=== PATIENT | male | born 1940 | race Caucasian/White ===

== ENCOUNTER 2022-07-13 12:13 | Outpatient (CLI) | payer MEDICARE, SELFPAY ==
[2022-07-13 12:57] LABS: Basophils % 0.8 %; Eosinophils # 0.1 10^3/uL (0.0-0.8); Eosinophils % 2.9 %; Hematocrit 30.6 % (42.0-52.0); Lymphocytes # 0.5 10^3/uL (0.8-4.8); Lymphocytes % 20.2 %; Mean Corpuscular HGB Conc 32.7 g/dL (30.0-36.0); Mean Corpuscular Hemoglobin 35.3 pg (28.0-34.0); Mean Corpuscular Volume 108.1 fl (80-94); Mean Platelet Volume 12.1 fL (7.4-10.4); Monocytes # 0.3 10^3/uL (0.2-0.9); Neutrophils # 1.53 10^3/uL (1.8-7.7); Neutrophils % 63.3 %; Nucleated Red Blood Cells % 0 %; Platelet Count 64 10^3/cmm (130-400); Red Blood Count 2.83 10^6/uL (4.1-5.3); Red Cell Distribution Width 13.9 % (12.1-15.1); White Blood Count 2.4 10^3/uL (4.0-10.0)
[2022-07-13 13:07] LABS: Alanine Aminotransferase 18 U/L (0-41); Albumin Level 3.5 g/dL (3.5-5.2); Alkaline Phosphatase 88 U/L (40-130); Anion Gap 13.5 (5-19); Aspartate Amino Transferase 21 U/L (0-40); Blood Urea Nitrogen 16 mg/dL (8-23); Calcium 9.1 mg/dL (8.5-10.5); Carbon Dioxide 25 mmol/L (22-29); Chloride 103 mmol/L (98-107); Chol HDL Ratio 2.24 mg/dL (1.0-5.00); Cholesterol 112 mg/dL (0-200); Glucose 186 mg/dL (65-115); HDL Cholesterol 50 mg/dL (60-100); LDL Cholesterol Calculated 47 mg/dL (50-129); LDL HDL Ratio 0.94 RATIO (0.00-3.22); Osmolality Calculated 290 mOsm/kg (285-295); Potassium 4.5 mmol/L (3.5-5.1); Sodium 137 mmol/L (136-145); Thyroid Stimulating Hormone 2.05 uIU/mL (0.27-4.20); Total Protein 6.5 g/dL (6.6-8.7); Triglycerides 77 mg/dL (0-150)
[2022-07-13 13:16] LABS: Estmated Average Glucose 148; Hemoglobin A1C 6.8 % (4.0-6.0)
== END 2022-07-13 12:14 | disposition home or self-care (01) ==
PROVIDERS: PCP Family Medicine; Visit Provider Family Medicine
DX: E03.9 Hypothyroidism, unspecified (principal); Z13.228 Encounter for screening for other metabolic disorders; R73.09 Other abnormal glucose
CPT/HCPCS: 80053; 80061; 83036; 84443; 85025

== ENCOUNTER 2022-09-07 09:03 | Outpatient (CLI) | payer MEDICARE, SELFPAY ==
[2022-09-07 09:22] LABS: Basophils # 0.1 10^3/uL (0.0-0.1); Eosinophils # 0.2 10^3/uL (0.0-0.8); Eosinophils % 4.4 %; Hemoglobin 10.7 g/dL (11.7-16.6); Lymphocytes # 0.9 10^3/uL (0.8-4.8); Mean Corpuscular HGB Conc 33.4 g/dL (30.0-36.0); Mean Corpuscular Hemoglobin 35.4 pg (28.0-34.0); Monocytes # 0.5 10^3/uL (0.2-0.9); Neutrophils # 3.33 10^3/uL (1.8-7.7); Neutrophils % 66.6 %; Nucleated Red Blood Cells % 0 %; Platelet Count 86 10^3/cmm (130-400); Red Blood Count 3.02 10^6/uL (4.1-5.3); Red Cell Distribution Width 14.6 % (12.1-15.1); Reticulocyte % 1.7 % (0.5-2.0)
[2022-09-07 09:48] LABS: Estmated Average Glucose 94; Hemoglobin A1C 4.9 % (4.0-6.0)
[2022-09-07 09:54] LABS: Alanine Aminotransferase 20 U/L (0-41); Albumin Level 3.9 g/dL (3.5-5.2); Alkaline Phosphatase 82 U/L (40-130); Anion Gap 16.1 (5-19); Aspartate Amino Transferase 23 U/L (0-40); Blood Urea Nitrogen 16 mg/dL (8-23); Calcium 9.4 mg/dL (8.5-10.5); Carbon Dioxide 25 mmol/L (22-29); Chloride 102 mmol/L (98-107); Globulin 2.8 g/dL (1.3-4.6); Glucose 93 mg/dL (65-115); Osmolality Calculated 289 mOsm/kg (285-295); Potassium 4.1 mmol/L (3.5-5.1); Sodium 139 mmol/L (136-145); Thyroid Stimulating Hormone 3.29 uIU/mL (0.27-4.20); Total Bilirubin 1.4 mg/dL (0.15-1.2); Total Protein 6.7 g/dL (6.6-8.7)
[2022-09-07 10:01] LABS: LAB Peripheral Smear Sent for Review
[2022-09-07 11:12] LABS: Folate Level 15.9 ng/mL (4.5-32.2)
[2022-09-07 11:25] LABS: Vitamin B12 > 2000 pg/mL (232-1245)
== END 2022-09-07 09:04 | disposition home or self-care (01) ==
PROVIDERS: PCP Family Medicine; Visit Provider Family Medicine
DX: R79.9 Abnormal finding of blood chemistry, unspecified (principal); I10 Essential (primary) hypertension; Z76.89 Persons encountering health services in other specified circumstances; E11.9 Type 2 diabetes mellitus without complications; D69.6 Thrombocytopenia, unspecified; D72.819 Decreased white blood cell count, unspecified; D53.9 Nutritional anemia, unspecified
CPT/HCPCS: 80053; 80503; 82607; 82746; 83036; 84439; 84443; 85025; 85045

== ENCOUNTER 2022-11-05 19:53 | Emergency (ER) | payer MEDICARE, SELFPAY ==
[2022-11-05 19:56] VITALS: BP 119/69; PULSE 99; RESP 16; TEMP 36.6; O2SAT 97; BMI 21.5
--- NOTE | 2022-11-05 20:10 | CTR_ITS ---
PROCEDURE INFORMATION: Exam: CT Head Without Contrast Exam date and time: 11/05/2022 8:18 PM Age: 82 years old Clinical indication: Injury or trauma; Fall; Blunt trauma (contusions or hematomas); Consciousness not specified; Additional info: Fall, posterior head pain, HX of old brain bleed per PT TECHNIQUE: Imaging protocol: Computed tomography of the head without contrast. Radiation optimization: All CT scans at this facility use at least one of these dose optimization techniques: automated exposure control; mA and/or kV adjustment per patient size (includes targeted exams where dose is matched to clinical indication); or iterative reconstruction. REPORTING DATA: Count of CT and Cardiac NM exams in prior 12 months: This patient has received 0 known CTs and 0 known cardiac nuclear medicine studies in the 12 months prior to the current study. COMPARISON: No relevant prior studies available. RADIATION DOSE METRICS: Total DLP (mGy-cm): 194.9 FINDINGS: Brain: There is a right cerebral convexity extra-axial subdural collection measuring 5 mm maximum thickness on series 6, image 30 slightly hyperdense to CSF. There is midline shift to the left measuring 2 mm present with minimal mass effect. No acute infarct. Mild involutional changes of the brain are present. Cerebral ventricles: No ventriculomegaly. Paranasal sinuses: Visualized sinuses are unremarkable. No fluid levels. Mastoid air cells: Visualized mastoid air cells are well aerated. Bones/joints: Unremarkable. No acute fracture. Soft tissues: Unremarkable. CT/CT head wo con* [id number] IMPRESSION: Right cerebral convexity extra-axial collection slightly hyperdense to CSF is likely a subacute subdural hematoma. This results in 2 mm of leftward midline shift.
--- NOTE | 2022-11-05 20:10 | CTR_ITS ---
PROCEDURE INFORMATION: Exam: CT Cervical Spine Without Contrast Exam date and time: 11/05/2022 8:18 PM Age: 82 years old Clinical indication: Injury or trauma; Fall; Blunt trauma; Additional info: Fall, neck pain, HX of multiple neck surgeries TECHNIQUE: Imaging protocol: Computed tomography of the cervical spine without contrast. Radiation optimization: All CT scans at this facility use at least one of these dose optimization techniques: automated exposure control; mA and/or kV adjustment per patient size (includes targeted exams where dose is matched to clinical indication); or iterative reconstruction. REPORTING DATA: Count of CT and Cardiac NM exams in prior 12 months: This patient has received 0 known CTs and 0 known cardiac nuclear medicine studies in the 12 months prior to the current study. COMPARISON: No relevant prior studies available. RADIATION DOSE METRICS: Total DLP (mGy-cm): 1170.35 FINDINGS: Bones/joints: The cervical spinal alignment is near anatomic. There are anterior interbody fusion changes present C3 to C6 with laminectomy changes also seen at the same levels. Adjacent segment degenerative disc disease is present without high-grade compromise of the spinal canal. Lungs: Lung apices are normal. Soft tissues: Unremarkable. CT/CT cervical spin wo con* [id number] IMPRESSION: No acute cervical spinal fracture.
--- NOTE | 2022-11-05 20:10 | W.ED.FALL ---
HPI - Fall General: Chief Complaint: Fall Stated Complaint: fall, head injury, neck pain Time Seen by Provider: 11/05/22 20:05 History of Present Illness: Patient presents to the ER with his caregiver. Patient states he fell hit the back of his head. Patient is now having posterior occipital pain and neck pain. Patient denies any loss of consciousness. Patient is not on blood thinners. 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 MD complaint: fall Onset (ago): day(s) (Today) Fall from: standing Place fall occurred: home Loss of consciousness: None Context: tripped/slipped Location of injury: head and neck Associated symptoms-after fall: Reports no associated symptoms, headache(s) and neck pain; Denies abdominal pain or chest pain Review of Systems General: Reports: 10 or more systems reviewed and unremarkable except in HPI and below Const: Denies: fever(s) or chills Eyes: Denies: change in vision or photophobia ENMT: Denies: throat pain or odynophagia Card: Denies: chest pain, palpitations, irregular heart rhythm or edema Resp: Denies: dyspnea, productive cough or non-productive cough GI: Denies: abdominal pain, nausea or vomiting : Denies: flank pain or dysuria Musc: Reports: neck pain; Denies: back pain, extremity pain or extremity swelling Skin/Breast: Denies: rash or pruritus Neuro: Reports: headache(s); Denies: numbness in extremities or weakness in extremities Physical Exam Const: COMMON NORMALS: no acute distress, average body habitus, patient oriented x3, no limitations, healthy appearing, alert and well nourished HENMT: COMMON NORMALS: normocephalic, atraumatic, hearing grossly normal bilaterally, external ears normal, Normal external nose present and moist oral mucous membranes HEAD & SCALP: normocephalic and atraumatic NOSE: Normal external nose present EXTERNAL EAR: Yes external ears normal Eye: COMMON NORMALS: Equal, round and reactive pupils present, EOMs intact bilaterally, conjunctivae normal and no scleral icterus CONJUNCTIVA: Yes conjunctivae normal PUPIL: Yes Equal, round and reactive pupils present Neck/C-Spine: COMMON NORMALS: no JVD OTHER: Minimal pain with palpation over posterior C-spine, worse when palpating bilateral paraspinal muscles. Chest: COMMONS NORMALS: normal inspection of the chest and normal palpation of entire chest wall Resp: COMMON NORMALS: normal respiratory effort, No retractions, No use of accessory muscles and clear to auscultation bilaterally AUSCULTATION: clear to auscultation bilaterally Cardio: COMMON NORMALS: no JVD, regular rate, regular rhythm, S1 normal heart sound present and S2 normal heart sound present RATE: regular rate RHYTHM: regular rhythm HEART SOUNDS: S1 normal heart sound present and S2 normal heart sound present GI: COMMON NORMALS: Normal to inspection, nondistended, normoactive bowel sounds present, Soft to palpation, non-tender and No hepatosplenomegaly present PALPATION: Yes Soft to palpation and Yes No hepatosplenomegaly present : COMMON NORMALS: Yes no CVA tenderness BLADDER/KIDNEY EXAM: Yes no CVA tenderness Back/Pelvis: COMMON NORMALS: no CVA tenderness Neuro: COMMON NORMALS: patient oriented x3, CN's II-XII intact bilaterally, moves all extremities, no focal motor deficits and no sensory deficits noted SENSORIUM/ORIENTATION: Yes alert Course Vital Signs: Vital signs: Vital Signs Temperature 97.8 F 11/05/22 19:56 Pulse Rate 103 H 11/05/22 20:11 Respiratory Rate 16 11/05/22 20:11 Blood Pressure 108/63 11/05/22 20:11 Pulse Oximetry 98 11/05/22 20:11 Oxygen Delivery Me thod Room Air 11/05/22 20:11 MDM - Fall Medical Decision Making Patient is 82-year-old male who fell today and hit the back of his head. He presents to the ER with head pain and neck pain. Patient denies any loss of consciousness. Physical exam was performed imaging was obtained radiologist called and said patient has a 5 mm subacute subdural hematoma in the right cerebral region with a 2 mm leftward shift. This was discussed with the patient and his family member. Patient will be transferred to [facility] Dr. Ambrose was notified and accepted in transfer. Differential Diagnosis Likely concussion without loss of consciousness; Unlikely syncope, dislocation of shoulder region, fracture of wrist, compression fracture or concussion with loss of consciousness Medical Records I reviewed the patient's medical records. Lab Data I reviewed the patient's lab results. Radiology Impressions Cervical Spine CT 11/05/22 20:10 IMPRESSION: No acute cervical spinal fracture. Head CT 11/05/22 20:10 IMPRESSION: Right cerebral convexity extra-axial collection slightly hyperdense to CSF is likely a subacute subdural hematoma. This results in 2 mm of leftward midline shift. ADDENDUM: 11/05/222056 THIS REPORT CONTAINS FINDINGS THAT MAY BE CRITICAL TO PATIENT CARE. The findings were verbally communicated via telephone conference with Lewis Baum at 8:55 PM CDT on 11/05/2022. The findings were acknowledged and understood. Discharge Plan Discharge Patient Disposition: Xfer Short-Term Hosp Clinical Impression: Acute subdural hematoma, Fall Condition: Stable Prescriptions: No Action (DME) lancets [TRUEplus Lancets] 28 gauge misc See Rx Instructions .ROUTE .MEDSUPPLY Qty: 100 Rx Instructions: As directed cholecalciferol (vitamin D3) [Vitamin D3] 10 mcg (400 unit) tablet PO glimepiride 4 mg tablet PO citalopram 20 mg tablet PO levetiracetam 500 mg tablet PO atorvastatin 10 mg tablet PO metformin 500 mg tablet PO cholecalciferol (vitamin D3) 125 mcg (5,000 unit) tablet 5,000 unit PO .weekly Referrals: Cale Mohr DO [Primary Care Provider] - Coding Level of Care Code ED Plumbing Assembler for Mayra Pedroza
[2022-11-05 20:11] VITALS: BP 108/63; PULSE 103; RESP 16; O2SAT 98
--- NOTE | 2022-11-05 21:26 | PC.NURSE ---
Report called to [facility] for report @ [phone].
[2022-11-05 21:30] LABS: Alanine Aminotransferase 21 U/L (0-41); Albumin Level 4.2 g/dL (3.5-5.2); Alkaline Phosphatase 91 U/L (40-130); Anion Gap 18.6 (5-19); Aspartate Amino Transferase 24 U/L (0-40); Blood Urea Nitrogen 22 mg/dL (8-23); Calcium 9.8 mg/dL (8.5-10.5); Carbon Dioxide 24 mmol/L (22-29); Chloride 104 mmol/L (98-107); Globulin 3.1 g/dL (1.3-4.6); Glucose 186 mg/dL (65-115); Osmolality Calculated 302 mOsm/kg (285-295); Potassium 4.6 mmol/L (3.5-5.1); Sodium 142 mmol/L (136-145); Total Protein 7.3 g/dL (6.6-8.7)
[2022-11-05 21:53] LABS: Hematocrit 32.4 % (42.0-52.0); Hemoglobin 10.7 g/dL (11.7-16.6); Mean Corpuscular Volume 105.9 fl (80-94); Mean Platelet Volume 11.8 fL (7.4-10.4); Platelet Count 71 10^3/cmm (130-400); Red Blood Count 3.06 10^6/uL (4.1-5.3); Red Cell Distribution Width 14.2 % (12.1-15.1); White Blood Count 4.7 10^3/uL (4.0-10.0)
[2022-11-05 21:54] LABS: Basophils % 0.4 %; Eosinophils % 2.1 %; Lymphocytes % 14.9 %; Monocytes % 7.9 %; Neutrophils % 73.8 %
[2022-11-05 22:00] VITALS: BP 108/59; PULSE 84; RESP 29; O2SAT 99
[2022-11-05 22:06] VITALS: BP 104/62; PULSE 74; RESP 29; O2SAT 99
[2022-11-05 22:53] LABS: Eosinophils # 0.1 10^3/uL (0.0-0.8); Lymphocytes # 0.7 10^3/uL (0.8-4.8); Monocytes # 0.4 10^3/uL (0.2-0.9); Neutrophils # 3.46 10^3/uL (1.8-7.7); Nucleated Red Blood Cells % 0 %
== END 2022-11-05 22:08 | disposition short-term general hospital (02) ==
PROVIDERS: Emergency Provider Emergency Medicine; PCP Family Medicine
DX: S06.5X0A Traumatic subdural hemorrhage without loss of consciousness, initial encounter (principal); W19.XXXA Unspecified fall, initial encounter
CPT/HCPCS: 70450; 72125; 80053; 85025; 85610; 99285

== ENCOUNTER → 2022-11-16 09:11 | Outpatient (BNVA) | payer MEDICARE, SELFPAY | PROVIDERS: PCP Family Medicine; Visit Provider Podiatrist Foot & Ankle Surgery | DX: E11.42 Type 2 diabetes mellitus with diabetic polyneuropathy (principal); B35.1 Tinea unguium; I73.9 Peripheral vascular disease, unspecified; M20.40 Other hammer toe(s) (acquired), unspecified foot; Z79.84 Long term (current) use of oral hypoglycemic drugs | CPT/HCPCS: 11721; 99203 ==

== ENCOUNTER 2022-12-27 09:26 | Outpatient (CLI) | payer MEDICARE, SELFPAY ==
[2022-12-27 09:43] LABS: Basophils % 1.1 %; Eosinophils # 0.1 10^3/uL (0.0-0.8); Eosinophils % 2.8 %; Hematocrit 28.1 % (42.0-52.0); Hemoglobin 9.1 g/dL (11.7-16.6); Lymphocytes # 0.4 10^3/uL (0.8-4.8); Lymphocytes % 15.3 %; Mean Corpuscular HGB Conc 32.4 g/dL (30.0-36.0); Mean Corpuscular Hemoglobin 35.4 pg (28.0-34.0); Mean Corpuscular Volume 109.3 fl (80-94); Mean Platelet Volume 12.9 fL (7.4-10.4); Monocytes # 0.3 10^3/uL (0.2-0.9); Monocytes % 9.3 %; Neutrophils # 1.99 10^3/uL (1.8-7.7); Neutrophils % 70.8 %; Nucleated Red Blood Cells % 0 %; Platelet Count 64 10^3/cmm (130-400); Red Blood Count 2.57 10^6/uL (4.1-5.3); Red Cell Distribution Width 14.4 % (12.1-15.1); White Blood Count 2.8 10^3/uL (4.0-10.0)
[2022-12-27 10:28] LABS: Estmated Average Glucose 88; Hemoglobin A1C 4.7 % (4.0-6.0)
[2022-12-27 10:37] LABS: 25 Hydroxy Vitamin D 88 ng/mL (30-100); Alanine Aminotransferase 14 U/L (0-41); Albumin Level 3.9 g/dL (3.5-5.2); Alkaline Phosphatase 66 U/L (40-130); Anion Gap 13.4 (5-19); Aspartate Amino Transferase 20 U/L (0-40); Blood Urea Nitrogen 16 mg/dL (8-23); Calcium 8.7 mg/dL (8.5-10.5); Carbon Dioxide 25 mmol/L (22-29); Chloride 108 mmol/L (98-107); Globulin 2.2 g/dL (1.3-4.6); Glucose 60 mg/dL (65-115); Magnesium 1.8 mg/dL (1.7-2.3); Osmolality Calculated 293 mOsm/kg (285-295); Potassium 4.4 mmol/L (3.5-5.1); Sodium 142 mmol/L (136-145); Thyroid Stimulating Hormone 3.07 uIU/mL (0.27-4.20); Total Bilirubin 1.1 mg/dL (0.15-1.2); Total Protein 6.1 g/dL (6.6-8.7); Vitamin B12 1314 pg/mL (232-1245)
[2022-12-27 10:40] LABS: Folate Level 13.9 ng/mL (4.5-32.2)
== END 2022-12-27 09:27 | disposition home or self-care (01) ==
LOC: LAB 09:27
PROVIDERS: PCP Family Medicine; Visit Provider Family Medicine
DX: E16.2 Hypoglycemia, unspecified (principal); E55.9 Vitamin D deficiency, unspecified; R94.6 Abnormal results of thyroid function studies; Z79.899 Other long term (current) drug therapy
CPT/HCPCS: 80053; 82306; 82607; 82746; 83036; 83735; 84443; 85025

== ENCOUNTER 2023-01-18 08:11 | Outpatient (CLI) | payer MEDICARE, SELFPAY ==
--- NOTE | 2023-01-18 08:24 | US_ITS ---
WS: [id number] Gallbladder and right upper quadrant ultrasound, 01/18/2023 Clinical Data: CIRRHOSIS, NON ALCOHOLIC Comparison: None. Findings: The gallbladder shows posterior shadowing which suggests gallstones. The wall is not well-defined but no obvious pericholecystic fluid is seen The common bile duct is 0.4 cm and there are no intrahepati c ductal abnormalities. Liver shows no cysts or dilated intrahepatic ducts. The liver shows dense echotexture with surface ir regularity which can be seen with cirrhosis. There is a nodule adjacent to the left lobe of the liver measuring 2.99 x 3.58 cm x 5.06 cm which has the echotexture of the adjacent liver. This may represe nt an accessory lobe of the liver. The pancreas is not obscured by overlying bowel gas and no cyst, pseudocyst, or evidence of pancreati tis is noted. Right kidney measures 9.3 cm and no cyst, masses or hydronephrosis can be seen. The aorta and inferior vena cava show no vascular abnormalities. US/US abdomen limited [id number] Impression: 1. Minimal liver surface irregularity and dense echotexture which can be seen w ith cirrhosis. 2. Probable accessory lobe of the liver. 3. Possible cholecystitis. 4. Recommend CT scan of the abdomen and pelvis with emphasis on the liver and u pper abdomen.
== END 2023-01-18 08:12 | disposition home or self-care (01) ==
PROVIDERS: PCP Family Medicine; Visit Provider Internal Medicine Gastroenterology
DX: E11.42 Type 2 diabetes mellitus with diabetic polyneuropathy (principal); B35.1 Tinea unguium; M20.40 Other hammer toe(s) (acquired), unspecified foot; I73.9 Peripheral vascular disease, unspecified; Z79.84 Long term (current) use of oral hypoglycemic drugs
CPT/HCPCS: 11721; 76705

== ENCOUNTER 2023-01-31 09:49 | Outpatient (CLI) | payer MEDICARE, SELFPAY ==
[2023-01-31 10:19] LABS: Ammonia 23 umol/L (16-60)
== END 2023-01-31 09:50 | disposition home or self-care (01) ==
PROVIDERS: PCP Family Medicine; Visit Provider Family Medicine
DX: E72.20 Disorder of urea cycle metabolism, unspecified (principal)
CPT/HCPCS: 82140

== ENCOUNTER 2023-02-02 13:05 | Emergency (ER) | payer MEDICARE, SELFPAY ==
[2023-02-02 13:07] VITALS: BP 114/71; PULSE 76; RESP 18; TEMP 36.5; O2SAT 97; BMI 24.3
--- NOTE | 2023-02-02 13:07 | W.ED.FALL ---
HPI - Fall General: Chief Complaint: Fall Stated Complaint: fall Time Seen by Provider: 02/02/23 13:07 History of Present Illness: Mr. Hilario is an 82-year-old gentleman presented to the emergency department from shelter for fall. He reports that he thinks that he just tripped but is somewhat unsure. He has been feeling well the past few days and denies other injuries other than his head. Mild intensity head pain. Course has persisted. No other specific changes in health, exacerbating, or alleviating factors identified. Fall from: standing Loss of consciousness: Unsure Review of Systems General: Reports: 10 or more systems reviewed and unremarkable except in HPI and below PFSH ED PFSH: Medical History (Updated 02/10/23 @ 00:01 by RICARDO Ruth) Dementia with behavioral disturbance Diabetes type 2, uncontrolled Subdural hematoma Physical Exam Const: COMMON NORMALS: alert GENERAL APPEARANCE: cooperative and well developed HENMT: COMMON NORMALS: normocephalic HEAD & SCALP: normocephalic THROAT: posterior oropharynx normal OTHER: Left superior scalp abrasion, no laceration. No luther signs or raccoon eyes. No hemotympanum. No otorrhea or rhinorrhea. Jaw alignment normal. Dentition baseline. No obvious bony step-offs. No septal hematoma. No evidence of ocular entrapment. Eye: COMMON NORMALS: conjunctivae normal CONJUNCTIVA: Yes conjunctivae normal SCLERA: sclerae normal Neck/C-Spine: COMMON NORMALS: supple GENERAL: Yes trachea midline Resp: COMMON NORMALS: clear to auscultation bilaterally EFFORT & INSPECTION: Yes able to speak in complete sentences AUSCULTATION: clear to auscultation bilaterally Cardio: COMMON NORMALS: regular rate and regular rhythm RATE: regular rate RHYTHM: regular rhythm GI: COMMON NORMALS: Soft to palpation PALPATION: Yes Soft to palpation and No Tenderness to palpation present (GI) Extremity: GENERAL: Yes normal exam except as noted and No edema Neuro: COMMON NORMALS: moves all extremities SENSORIUM/ORIENTATION: Yes alert and No Orientation impaired Psych: COMMON NORMALS: mental status grossly normal and Normal thought process present THOUGHT PROCESS: Normal thought process present Course Vital Signs: Vital signs: Vital Signs Temperature 97.9 F 02/02/23 15:29 Pulse Rate 74 02/02/23 15:29 Respiratory Rate 18 02/02/23 15:29 Blood Pressure 100/62 02/02/23 15:29 Pulse Oximetry 99 02/02/23 15:29 Oxygen Delivery Me thod Room Air 02/02/23 13:41 MDM - Fall Medical Decision Making 82-year-old gentleman presenting with fall. Head to toe exam performed. Nontoxic. EKG demonstrates sinus rhythm with first-degree AV block, nonspecific ST segment abnormalities, no STEMI. Normal glucose. No acute traumatic injuries identified on head or C-spine CT. Improved findings compared to prior. The results of ED evaluation were discussed with the patient including prescriptions and/or symptomatic cares (if applicable) including appropriate and responsible use, followup plan, and return precautions. The patient verbalized understanding and felt safe for discharge. Medical Records I reviewed the patient's medical records. Lab Data I reviewed the patient's lab results. Radiology Impressions Cervical Spine CT 02/02/23 13:21 IMPRESSION: 1. Postsurgical changes along with spondylotic degenerative changes as noted above. 2. No acute cervical spine fracture or significant change with prior exam. Head CT 02/02/23 13:21 IMPRESSION: 1. Atrophic or involutional change for age along with chronic small-vessel disease change within the periventricular deep white matter. 2. Interval improvement in mild right subdural fluid collection from prior exam November 05, 2022. 3. No acute intracranial hemorrhage or hematoma. Laboratory Results POC Glucose 105 mg/dL (70-110) 02/02/23 13:55 Discharge Plan Discharge Patient Disposition: Home Clinical Impression: Fall, Abrasion of scalp Condition: Stable Prescriptions: No Action (DME) lancets [TRUEplus Lancets] 28 gauge misc See Rx Instructions .ROUTE .MEDSUPPLY Qty: 100 Rx Instructions: As directed cholecalciferol (vitamin D3) [Vitamin D3] 10 mcg (400 unit) tablet 10 mcg PO DAILY glimepiride 4 mg tablet 4 mg PO DAILY citalopram 20 mg tablet 20 mg PO DAILY levetiracetam 500 mg tablet 500 mg PO BID atorvastatin 10 mg tablet 10 mg PO DAILY metformin 500 mg tablet 500 mg PO BID cholecalciferol (vitamin D3) 125 mcg (5,000 unit) tablet 5,000 unit PO DAILY pantoprazole 40 mg tablet,delayed release (DR/EC) 40 mg PO DAILY (DME) OneTouch Ultra Test Strip See Rx Instructions .ROUTE .MEDSUPPLY Qty: 10 Rx Instructions: As directed Discharge Orders: Discharge ED (Routine); Ordered 02/02/23 Ordered By: Dio Carty Referrals: Cale Mohr, [Primary Care Provider] - Discharge Diet: Usual diet Discharge Activity: Increase activity as tolerated Patient Instructions: Fall Prevention for Older Adults (ED), Head Injury (ED), Abrasion (ED) Activity Restrictions/Additional Instructions: Thank you for visiting the emergency department. You were seen and evaluated for fall with head injury. No acute internal injury was identified. Please keep the abrasion clean and dry and watch for signs of infection. You may use topical medications such as Neosporin or bacitracin. You may use glxt-eyk-vcfcmza medications such as acetaminophen and ibuprofen for pain however please do not exceed the daily recommended dosage as listed on the packaging and please keep in mind that many namebrand medications contain the same active ingredients. Please avoid these medications if previously instructed to do so by another physician due to other underlying medical condition. Follow-up with a primary care provider. Return for anything that you are concerned about and feel needs emergency department evaluation Coding Level of Care Code ED Curriculum And Instruction Director for Mayra Pedroza
--- NOTE | 2023-02-02 13:21 | CTR_ITS ---
PROCEDURE INFORMATION: Exam: CT Cervical Spine Without Contrast Exam date and time: 02/02/2023 1:34 PM Age: 82 years old Clinical indication: Injury or trauma; Fall; Concussion/head injury; Injury date: 02/02/2023; Prior surgery; Surgery date: 6+ months; Surgery type: Cspine; Patient HX: Denies loc TECHNIQUE: Imaging protocol: Computed tomography of the cervical spine without contrast. Radiation optimization: All CT scans at this facility use at least one of these dose optimization techniques: automated exposure control; mA and/or kV adjustment per patient size (includes targeted exams where dose is matched to clinical indication); or iterative reconstruction. REPORTING DATA: Count of CT and Cardiac NM exams in prior 12 months: This patient has received 2 known CTs and 0 known cardiac nuclear medicine studies in the 12 months prior to the current study. COMPARISON: CT cervical spin wo con* [id number] 11/05/2022 8:18 PM RADIATION DOSE METRICS: Total DLP (mGy-cm): 159.3 FINDINGS: Bones/joints: Postsurgical changes noted C3 through C6 level with anterior fusion hardware and interbody fusion along with laminectomy changes. Cervical vertebral body heights appear maintained. Alignment appears unremarkable. Spondylotic or degenerative changes noted above and below the level of fusion. No fracture or acute osseous abnormality. No significant high-grade or severe spinal stenosis. No significant change with previous exam. Lungs: Lung apices are not visualized. Soft tissues: No significant focal soft tissue abnormality. CT/CT cervical spin wo con* [id number] IMPRESSION: 1. Postsurgical changes along with spondylotic degenerative changes as noted above. 2. No acute cervical spine fracture or significant change with prior exam.
--- NOTE | 2023-02-02 13:21 | CTR_ITS ---
PROCEDURE INFORMATION: Exam: CT Head Without Contrast Exam date and time: 02/02/2023 1:34 PM Age: 82 years old Clinical indication: Injury or trauma; Fall; Blunt trauma (contusions or hematomas); Without loss of consciousness; Injury date: 02/02/2023 TECHNIQUE: Imaging protocol: Computed tomography of the head without contrast. Radiation optimization: All CT scans at this facility use at least one of these dose optimization techniques: automated exposure control; mA and/or kV adjustment per patient size (includes targeted exams where dose is matched to clinical indication); or iterative reconstruction. REPORTING DATA: Count of CT and Cardiac NM exams in prior 12 months: This patient has received 2 known CTs and 0 known cardiac nuclear medicine studies in the 12 months prior to the current study. COMPARISON: CT head wo con* [id number] 11/05/2022 8:18 PM RADIATION DOSE METRICS: Total DLP (mGy-cm): 1128.1 FINDINGS: Brain: Atrophic or involutional change for is seen. Vwgf-[id number]-spkxiqih periventricular hypodensity suggest chronic small-vessel disease change. Findings are chronic with previous exam November 05, 2022. Interval improvement in mild right subdural fluid collection in relation to previous exam. No findings of acute intracranial hemorrhage or hematoma. No mass effect or shift of midline structures. No findings to indicate territorial or large vessel ischemic infarct. Cerebral ventricles: Mild ventricular prominence with atrophic change unchanged with prior exam. Paranasal sinuses: Visualized sinuses are unremarkable. No fluid levels. Mastoid air cells: Visualized mastoid air cells are well aerated. Bones/joints: Bone windows of the skull show no acute findings. Soft tissues: Unremarkable. CT/CT head wo con* [id number] IMPRESSION: 1. Atrophic or involutional change for age along with chronic small-vessel disease change within the periventricular deep white matter. 2. Interval improvement in mild right subdural fluid collection from prior exam November 05, 2022. 3. No acute intracranial hemorrhage or hematoma.
[2023-02-02 13:38] VITALS: BP 118/84; PULSE 78; RESP 16; TEMP 36.3; O2SAT 100
[2023-02-02 13:41] VITALS: BP 124/64; PULSE 69; RESP 18; TEMP 36.6; O2SAT 99
--- NOTE | 2023-02-02 13:50 | ECG_ITS ---
[facility] Test Date: 2023-02-02 Pat Name: Ted Hilario Department: Room: Gender: Male Guest Request Runner: : [id number] Requested By: Dio Carty Order Number: [id number] Giuseppe MD: Alex Alvares M.D. Measurements Intervals [place] Rate: 68 P: 61 VT: 272 QRS: -18 QRSD: 98 T: 38 QT: 411 QTc: 438 Interpretive Statements SINUS RHYTHM WITH FIRST DEGREE AV BLOCK No previous ECG available for comparison Electronically Signed On 02-04-2023 8:34:03 CDT by Alex Alvares M.D. [id number]
[2023-02-02 13:58] VITALS: TEMP 36.6
[2023-02-02 14:03] LABS: Glucose Point of Care 105 mg/dL (70-110)
[2023-02-02 15:29] VITALS: BP 100/62; PULSE 74; RESP 18; TEMP 36.6; O2SAT 99
== END 2023-02-02 15:34 | disposition home or self-care (01) ==
PROVIDERS: Emergency Provider Emergency Medicine; PCP Family Medicine
DX: S00.01XA Abrasion of scalp, initial encounter (principal); W19.XXXA Unspecified fall, initial encounter; I44.0 Atrioventricular block, first degree
CPT/HCPCS: 36416; 70450; 72125; 82962; 93005; 99284

== ENCOUNTER 2023-02-14 15:10 | Outpatient (CLI) | payer MEDICARE, SELFPAY ==
--- NOTE | 2023-02-14 15:15 | MR_ITS ---
WS: [id number] MRI BRAIN WITHOUT CONTRAST HISTORY: Worsening demenita, h/o subdural hematoma COMPARISON: CT head noncontrast 02/02/2023 TECHNIQUE: Diffusion imaging, multiplanar T1, T2 and FLAIR imaging obtained. No evidence for acute infarct or hemorrhage. Hollis-white matter differentiation is normal. Moderate sm all vessel ischemic changes surrounding the ventricles. No large territory infarct. Patient has a known small right mixed subdural hematoma. Diameter of the hematoma is 4 mm. No signifi cant mass effect upon the right frontal lobe. The right frontoparietal subdural hematoma does appear to have increased when compared to the most recent CT evaluations. Subdural hematoma extends posterio r along the parietal lobe. No midline shift. Mildly prominent ventricles and extra-axial spaces. No inferior displacement of cerebellar tonsils. The sella turcica and pituitary gland are unremarkabl e. Dural venous sinuses and [place] demonstrate no abnormality on this unenhanced studies. Paranasal sinuses: Clear. Mastoid air cells: Normal. Calvarium and scalp: Intact. IMPRESSION: 1. Diffusion weighted imaging is normal. No acute infarct. 2. Small mixed right frontoparietal subdural hematoma. As compared to the most recent CT examination s of 02/02/2023 and 11/05/2022 the subdural appears very slightly greater in extent. No significant midl ine shift and no mass effect at this time. 3. Mild atrophy and chronic small vessel ischemic disease. Notified Cale Mohr DO at 02/14/2023 4:20 PM. Message left with Judit at the office.
--- NOTE | 2023-02-14 15:17 | MR_ITS ---
WS: [id number] MRI ABDOMEN WITH AND WITHOUT CONTRAST. COMPARISON: Abdomen ultrasound 01/18/2013 Multiplanar, multisequence imaging is performed with and without contrast. MultiHance 14 mL IV. History: History of cirrhosis. There is motion artifact on numerous sequences. Patient is unable to hold his breath for this amount of time to adequately obtain MRI evaluation. Heterogeneous appearance to the liver. On the images obtained no masses or abnormal enhancement ident ified. Several sequences are limited by motion artifact. No mass is identified adjacent to the liver as noted on the prior CT. Mass may have been a distended stomach with food products. Portal vein as v isualized contains no thrombus. Gallbladder is mildly dilated with layering stones and possible sludg e. No adjacent inflammation. No bile duct dilatation. Pancreas is atrophied but otherwise poorly visu alized. Spleen is enlarged measuring 15.3 cm in length. There is a tiny amount of ascites adjacent to the liver. No adrenal mass. The stomach is markedly distended with food products. The visualized GI tract within the upper abdome n also demonstrates constipation through the transverse colon. No obstructive pattern. IMPRESSION: 1. Quality of this examination is degraded by breathing artifact. Patient was unable to remain still for this examination. CT abdomen and pelvis may be a better option as the patient would not be requir ed to remain still for as long. 2. Heterogeneous liver. No mass identified. 3. Possible accessory lobe identified by the recent ultrasound may be a fluid distended stomach. The stomach is markedly distended with food products. Consider gastroparesis. 4. Mildly hydropic gallbladder without adjacent inflammation. Stones and sludge are present. No bile duct dilatation. 5. Mild splenomegaly.
[2023-02-14] MEDS: gadobenate dimeglumine 20 mL vial IV (16:36)
== END 2023-02-14 15:11 | disposition home or self-care (01) ==
LOC: RAD 15:12
PROVIDERS: PCP Family Medicine; Visit Provider Family Medicine
DX: F03.918 Unspecified dementia, unspecified severity, with other behavioral disturbance (principal); R41.82 Altered mental status, unspecified; S06.5XAA Traumatic subdural hemorrhage with loss of consciousness status unknown, initial encounter; X58.XXXA Exposure to other specified factors, initial encounter; R16.1 Splenomegaly, not elsewhere classified
CPT/HCPCS: 70551; 74183; A9577

== ENCOUNTER 2023-03-14 13:29 | Emergency (ER) | payer MEDICARE, SELFPAY ==
[2023-03-14 13:32] VITALS: BP 116/72; PULSE 105; RESP 15; TEMP 37.2; O2SAT 97; BMI 24.3
--- NOTE | 2023-03-14 13:40 | CT_ITS ---
WS: [id number] CT HEAD TECHNIQUE: Noncontrast CT of the head obtained from the skullbase to the vertex. CLINICAL INFORMATION: fall COMPARISON: 02/02/2023 DLP: 1337.[address] scans at [facility] use at least one of these dose optimization techniques: automated e xposure control; mA and/or kV adjustment per patient size (includes targeted exams where dose is matc hed to clinical indication); or iterative reconstruction. FINDINGS:Previously described RIGHT frontal parietal subdural hematoma seen on the recent studies jeri ears stable to slightly improved. No new hemorrhage. Small meningioma overlying the RIGHT frontal lobe better seen on the prior MRI measuring 13 x 7 mm Mild mucosal thickening in the paranasal sinuses. Small retention cyst or polyp RIGHT maxillary sinus . Mastoid air cells are well aerated. Normal posterior nasopharynx. Soft tissue edema overlying the midline parietal calvarium. No visualized fractures. IMPRESSION: 1. Previously described RIGHT frontal parietal subdural hematoma seen on the recent studies appears stable to slightly improved. No new hemorrhage. 2. Small RIGHT frontal extra-axial meningioma better seen on the prior MRI 3. Moderate small vessel changes. Moderate parenchymal volume loss. 4. Intracranial vascular calcification.
--- NOTE | 2023-03-14 13:40 | CT_ITS ---
WS: [id number] CT CERVICAL TRAUMA TECHNIQUE: Noncontrast CT of the cervical spine with coronal and sagittal reformatted images. CLINICAL INFORMATION: fall COMPARISON: CT 02/02/2023 DLP: 1337.[address] scans at [facility] use at least one of these dose optimization techniques: automated e xposure control; mA and/or kV adjustment per patient size (includes targeted exams where dose is matc hed to clinical indication); or iterative reconstruction. FINDINGS: Straightening the normal cervical lordosis. Extensive postoperative changes ACDF C3-C6 with interbody fusion grafts. Decompressive laminectomy defects. Dens is normal in appearance. Normal occ ipital condyles. No acute fractures. Lung apices appear well aerated. Vascular calcification. Hardwar e appears unchanged compared to previous. IMPRESSION: No evidence of acute fracture or dislocation.
--- NOTE | 2023-03-14 13:47 | W.ED.FALL ---
HPI - Fall General: Chief Complaint: Fall Stated Complaint: fall Time Seen by Provider: 03/14/23 13:31 Source: patient and EMS Mode of arrival: EMS History of Present Illness: 83-year-old male has a history of dementia that slipped and fell at home he fell backwards did hit his head. Unknown if he had loss conscious does have an abrasion in the back of head he has a mild headache denies any pain elsewhere. History is limited due to his dementia. Associated symptoms-after fall: Reports headache(s); Denies abdominal pain or chest pain Review of Systems Const: Denies: fever(s) Eyes: Denies: change in vision Card: Denies: chest pain Resp: Denies: dyspnea GI: Denies: abdominal pain Musc: Denies: back pain Neuro: Reports: headache(s) [facility] ED PFSH: Medical History Dementia with behavioral disturbance Diabetes type 2, uncontrolled Subdural hematoma Physical Exam Const: COMMON NORMALS: no acute distress; negative for patient oriented x3 HENMT: OTHER: Hematoma to posterior scalp no lacerations Eye: COMMON NORMALS: Equal, round and reactive pupils present and conjunctivae normal CONJUNCTIVA: Yes conjunctivae normal PUPIL: Yes Equal, round and reactive pupils present Neck/C-Spine: COMMON NORMALS: supple Chest: COMMONS NORMALS: normal inspection of the chest and normal palpation of entire chest wall Resp: COMMON NORMALS: normal respiratory effort Cardio: COMMON NORMALS: regular rate and regular rhythm RATE: regular rate RHYTHM: regular rhythm GI: COMMON NORMALS: Normal to inspection, nondistended, normoactive bowel sounds present and non-tender Back/Pelvis: COMMON NORMALS: thoracic and lumbar spine normal to inspection and no thoracic nor lumbar tenderness Extremity: COMMON NORMALS: normal to inspection and full ROM Neuro: COMMON NORMALS: negative for patient oriented x3 Psych: COMMON NORMALS: negative for mental status grossly normal Skin: COMMON NORMALS: no rashes or lesions noted GENERAL SKIN EXAM: no rashes or lesions noted Course Vital Signs: Vital signs: Vital Signs Temperature 98.9 F 03/14/23 13:32 Pulse Rate 105 H 03/14/23 13:32 Respiratory Rate 15 03/14/23 13:32 Blood Pressure 116/72 03/14/23 13:32 Pulse Oximetry 97 03/14/23 13:32 Oxygen Delivery Me thod Room Air 03/14/23 13:32 MDM - Fall Medical Decision Making Patient presents after a fall he does have a hematoma CTs here are normal he is well-appearing here he is stable for discharge. Discharge Plan Discharge Patient Disposition: Home Clinical Impression: Fall, CHI (closed head injury) Condition: Stable Prescriptions: No Action (DME) lancets [TRUEplus Lancets] 28 gauge misc See Rx Instructions .ROUTE .MEDSUPPLY Qty: 100 Rx Instructions: As directed cholecalciferol (vitamin D3) [Vitamin D3] 10 mcg (400 unit) tablet 10 mcg PO DAILY glimepiride 4 mg tablet 4 mg PO DAILY citalopram 20 mg tablet 20 mg PO DAILY levetiracetam 500 mg tablet 500 mg PO BID atorvastatin 10 mg tablet 10 mg PO DAILY metformin 500 mg tablet 500 mg PO BID cholecalciferol (vitamin D3) 125 mcg (5,000 unit) tablet 5,000 unit PO DAILY pantoprazole 40 mg tablet,delayed release (DR/EC) 40 mg PO DAILY (DME) OneTouch Ultra Test Strip See Rx Instructions .ROUTE .MEDSUPPLY Qty: 10 Rx Instructions: As directed bisacodyl 10 mg suppository 10 mg [place] DAILY PRN (Reason: Constipation) acetaminophen 325 mg capsule 325 mg PO QID PRN (Reason: Pain) Rx Instructions: 2 tablets by mouth q6h prn for pain/headache/fever >100 degrees Milk of Magnesia 400 mg/5 mL Suspension 30 ml PO DAILY PRN (Reason: Constipation) Discharge Orders: Discharge ED (Routine); Ordered 03/14/23 Ordered By: Irasema Nguyen Referrals: Cale Mohr DO [Primary Care Provider] - Discharge Diet: Advance as tolerated Discharge Activity: Resume usual activity Patient Instructions: Head Injury (ED) Coding Level of Care Code ED Form Setter Supervisor for Mayra Pedroza
== END 2023-03-14 15:20 | disposition home or self-care (01) ==
PROVIDERS: Emergency Provider Emergency Medicine; PCP Family Medicine
DX: S00.03XA Contusion of scalp, initial encounter (principal); S09.8XXA Other specified injuries of head, initial encounter; Z79.84 Long term (current) use of oral hypoglycemic drugs; W01.0XXA Fall on same level from slipping, tripping and stumbling without subsequent striking against object, initial encounter; F03.90 Unspecified dementia, unspecified severity, without behavioral disturbance, psychotic disturbance, mood disturbance, and anxiety; E11.9 Type 2 diabetes mellitus without complications
CPT/HCPCS: 70450; 72125; 99284

== ENCOUNTER 2023-03-15 13:47 | Emergency (ER) | payer MEDICARE, SELFPAY ==
[2023-03-15 13:48] VITALS: BP 113/55; PULSE 87; RESP 19; TEMP 36.8; O2SAT 98; BMI 33.0
--- NOTE | 2023-03-15 14:02 | W.ED.FALL ---
HPI - Fall General: Chief Complaint: Fall Stated Complaint: fall Time Seen by Provider: 03/15/23 13:57 History of Present Illness: This 83-year-old male with a history of dementia was brought from [place] [facility] for evaluation following a fall. It appears to be an unwitnessed fall. Staff notes that they found him on the floor in his room. Patient could not tell what made him fall. He is not sure whether or not he hit his head. He is also unsure about loss of consciousness. History is limited due to patient's dementia. Review of records show that he was seen yesterday following a fall. At that time, he tested positive for COVID. Patient has no fever, nausea, vomiting or any other systemic symptoms. He could not even remember that he was seen here yesterday following a fall. He tells me he mobilizes with a walker but is not sure whether or not he was using a walker at the time he fell. Associated symptoms-after fall: Denies chest pain, headache(s), lightheadedness or neck pain Review of Systems Const: Denies: chills, body aches or change in appetite Eyes: Denies: change in vision or eye discharge ENMT: Denies: throat pain, dental pain or nasal discharge Card: Denies: chest pain or lightheadedness : Denies: dysuria Musc: Denies: neck pain or back pain Neuro: Denies: headache(s) or weakness in extremities Psych: Denies: depression Morris/Lymph: Denies: easy bruising All/Imm: Denies: urticaria, tongue swelling or facial swelling [facility] ED PFSH: Medical History Dementia with behavioral disturbance Diabetes type 2, uncontrolled Subdural hematoma Physical Exam Const: COMMON NORMALS: no acute distress, no limitations and alert HENMT: COMMON NORMALS: normocephalic HEAD & SCALP: normocephalic Eye: COMMON NORMALS: EOMs intact bilaterally Neck/C-Spine: COMMON NORMALS: full ROM and supple Chest: COMMONS NORMALS: normal inspection of the chest Resp: COMMON NORMALS: normal respiratory effort, No retractions, No use of accessory muscles and clear to auscultation bilaterally AUSCULTATION: clear to auscultation bilaterally Cardio: COMMON NORMALS: regular rate, regular rhythm and No murmurs present (Cardio) RATE: regular rate RHYTHM: regular rhythm GI: COMMON NORMALS: Normal to inspection, nondistended, normoactive bowel sounds present and non-tender : COMMON NORMALS: Yes no CVA tenderness BLADDER/KIDNEY EXAM: Yes no CVA tenderness Back/Pelvis: COMMON NORMALS: no CVA tenderness and no thoracic nor lumbar tenderness Extremity: GENERAL: Yes normal exam except as noted Neuro: COMMON NORMALS: no focal motor deficits SENSORIUM/ORIENTATION: Yes alert OTHER: Alert and oriented x2. He knows he is in [facility], knows who the president is but thinks this is February. Psych: COMMON NORMALS: mental status grossly normal and cooperative Course Vital Signs: Vital signs: Vital Signs Temperature 98.3 F 03/15/23 13:48 Pulse Rate 68 03/15/23 17:55 Respiratory Rate 16 03/15/23 17:55 Blood Pressure 201/85 03/15/23 17:55 Pulse Oximetry 95 03/15/23 17:55 Oxygen Delivery Me thod Room Air 03/15/23 17:55 MDM - Fall Medical Decision Making Medical decision making: History as above. Patient was brought in for evaluation following what seems to be a fall. He fell yesterday and during evaluation was found to be COVID-19 positive. Because of his dementia, patient could not provide any useful history. It is questionable that he mobilizes with his walker as he should. Work-up reveals no injuries. Regarding the COVID, he has clear lungs on auscultation and has normal oxygen on room air. Chest x-ray is negative for any intrathoracic process. Given that he is stable, he will be discharged back to the [place] [facility]. There is no indication to admit him at this time. He will return if his condition changes in any way. Lab Data 03/15/23 14:02 03/15/23 14:02 Radiology Impressions Ribs X-Ray 03/15/23 14:28 IMPRESSION: 1. No fracture seen about the right ribs. Follow-up as clinically indicated. 2. No acute findings in the chest. Laboratory Results WBC 4.65 10^3/uL (3.29-11.43) 03/15/23 14:02 RBC 2.73 10^6/uL (3.85-5.65) L 03/15/23 14:02 Hgb 9.90 g/dL (11.27-16.99) L 03/15/23 14:02 Hct 30.2 % (37-53) L 03/15/23 14:02 MCV 110.6 fl (82-101) H 03/15/23 14:02 MCH 36.3 pg (27-33) H 03/15/23 14:02 MCHC 32.8 g/dL (30-55) 03/15/23 14:02 RDW 14.6 % (12.1-15.1) 03/15/23 14:02 Plt Count 56 10^3/cmm (157-399) L 03/15/23 14:02 MPV 13.4 fL (7.4-10.4) H 03/15/23 14:02 Neut % (Auto) 77.3 % 03/15/23 14:02 Lymph % (Auto) 8.0 % 03/15/23 14:02 [place] % (Auto) 13.3 % 03/15/23 14:02 Eos % (Auto) 0.4 % 03/15/23 14:02 Baso % (Auto) 0.4 % 03/15/23 14:02 Neut # (Auto) 3.59 10^3/uL (1.8-7.7) 03/15/23 14:02 Lymph # (Auto) 0.4 10^3/uL (0.8-4.8) L 03/15/23 14:02 Carroll # (Auto) 0.6 10^3/uL (0.2-0.9) 03/15/23 14:02 Eos # (Auto) 0.0 10^3/uL (0.0-0.8) 03/15/23 14:02 Baso # (Auto) 0.0 10^3/uL (0.0-0.1) 03/15/23 14:02 Nucleated RBC % (auto) 0 % 03/15/23 14:02 Nucleated RBCs # 0.0 /100WBC 03/15/23 14:02 Sodium 138 mmol/L (136-145) 03/15/23 14:02 Potassium 4.3 mmol/L (3.5-5.1) 03/15/23 14:02 Chloride 102 mmol/L (98-107) 03/15/23 14:02 Carbon Dioxide 23 mmol/L (22-29) 03/15/23 14:02 Anion Gap 17.3 (5-19) 03/15/23 14:02 BUN 21 mg/dL (8-23) 03/15/23 14:02 Creatinine 0.9 mg/dL (0.7-1.2) 03/15/23 14:02 GFR Calculation Not Reportable 03/15/23 14:02 Glucose 86 mg/dL (65-115) 03/15/23 14:02 Calculated Osmolality 288 mOsm/kg (285-295) 03/15/23 14:02 Calcium 9.4 mg/dL (8.5-10.5) 03/15/23 14:02 Total Bilirubin 1.6 mg/dL (0.15-1.2) H 03/15/23 14:02 AST 44 U/L (0-40) H 03/15/23 14:02 ALT 24 U/L (0-41) 03/15/23 14:02 Alkaline Phosphatase 81 U/L (40-130) 03/15/23 14:02 Total Protein 7.1 g/dL (6.6-8.7) 03/15/23 14:02 Albumin 4.3 g/dL (3.5-5.2) 03/15/23 14:02 Globulin 2.8 g/dL (1.3-4.6) 03/15/23 14:02 Urine Color Yellow (Yellow) 03/15/23 16:56 Urine Appearance Clear (CLEAR) 03/15/23 16:56 Urine pH 5 (5-7) 03/15/23 16:56 Ur Specific [place] 1.020 (1.005-1.030) 03/15/23 16:56 Urine Protein Neg (Negative) 03/15/23 16:56 Urine Glucose (UA) Norm (Normal) 03/15/23 16:56 Urine Ketones Negative (Negative) 03/15/23 16:56 Urine Blood 2+ (Negative) H 03/15/23 16:56 Urine Nitrate Negative (Negative) 03/15/23 16:56 Urine Bilirubin Neg (Negative) 03/15/23 16:56 Urine Urobilinogen 1 mg/dL (Negative) H 03/15/23 16:56 Ur Leukocyte Esterase Negative (Negative) 03/15/23 16:56 Urine RBC 10-15 /hpf (0-2) H 03/15/23 16:56 Urine WBC 0-4 /hpf (0-5) H 03/15/23 16:56 Ur Squamous Epith Cells 0-4 /hpf (0-5) H 03/15/23 16:56 Amorphous Sediment Not Reportable 03/15/23 16:56 Urine Bacteria None /hpf (NONE) 03/15/23 16:56 Discharge Plan Discharge Patient Disposition: Home Clinical Impression: Encounter for examination following a fall, COVID-19 virus infection Condition: Stable Prescriptions: No Action (DME) lancets [TRUEplus Lancets] 28 gauge misc See Rx Instructions .ROUTE .MEDSUPPLY Qty: 100 Rx Instructions: As directed cholecalciferol (vitamin D3) [Vitamin D3] 10 mcg (400 unit) tablet 10 mcg PO DAILY glimepiride 4 mg tablet 4 mg PO DAILY citalopram 20 mg tablet 20 mg PO DAILY levetiracetam 500 mg tablet 500 mg PO BID atorvastatin 10 mg tablet 10 mg PO DAILY metformin 500 mg tablet 500 mg PO BID cholecalciferol (vitamin D3) 125 mcg (5,000 unit) tablet 5,000 unit PO DAILY pantoprazole 40 mg tablet,delayed release (DR/EC) 40 mg PO DAILY (DME) OneTouch Ultra Test Strip See Rx Instructions .ROUTE .MEDSUPPLY Qty: 10 Rx Instructions: As directed bisacodyl 10 mg suppository 10 mg [place] DAILY PRN (Reason: Constipation) acetaminophen 325 mg capsule 325 mg PO QID PRN (Reason: Pain) Rx Instructions: 2 tablets by mouth q6h prn for pain/headache/fever >100 degrees magnesium hydroxide [Milk of Magnesia] 400 mg/5 mL Suspension 30 ml PO DAILY PRN (Reason: Constipation) Discharge Orders: Discharge ED (Routine); Ordered 03/15/23 Ordered By: Ana Melendez Referrals: Cale Mohr DO [Primary Care Provider] - Patient Instructions: Opioid Safety, Pain Management Activity Restrictions/Additional Instructions: Maintain fall precautions. Take [id number] Tylenol or Motrin as needed for pain or body aches. Maintain adequate fluid intake. Follow-up with your primary care physician in 2 to 3 days for reevaluation. Return with new or worsening symptoms. Coding Level of Care Code ED Clinical Team Manager for Mayra Pedroza
--- NOTE | 2023-03-15 14:26 | CT_ITS ---
WS: [id number] CT HEAD TECHNIQUE: Noncontrast CT of the head obtained from the skullbase to the vertex. CLINICAL INFORMATION: fall with head trauma COMPARISON: 03/14/23 DLP: 1105.[address] scans at [facility] use at least one of these dose optimization techniques: automated e xposure control; mA and/or kV adjustment per patient size (includes targeted exams where dose is matc hed to clinical indication); or iterative reconstruction. FINDINGS: Previously described RIGHT frontal parietal subdural hematoma seen on the recent studies appears stab le to improved. No evidence of acute hemorrhage. Small meningioma overlying the RIGHT frontal lobe better seen on the prior MRI measuring 13 x 7 mm. Normal posterior nasopharynx. Soft tissue edema overlying the midline parietal calvarium unchanged si nce yesterday. No visualized calvarial fractures. LEFT sphenoid sinusitis. Mild mucosal thickening in the ethmoid air cells. Mastoid air cells well aerated. Vascular calcification. IMPRESSION: 1. No changes since 03/14/2023. 2. Previously described RIGHT frontal parietal subdural hematoma seen on the recent studies appears stable to slightly improved. No new hemorrhage. 3. Small RIGHT frontal extra-axial meningioma better seen on the prior MRI 4. LEFT sphenoid fluid likely sinusitis increased since yesterday.
--- NOTE | 2023-03-15 14:28 | XRR_ITS ---
PROCEDURE INFORMATION: Exam: XR Right Ribs with PA Chest Exam date and time: 03/15/2023 3:14 PM Age: 83 years old Clinical indication: Other: Rib pain; Additional info: Fall, right rib cage pain TECHNIQUE: Imaging protocol: Radiologic exam of the right ribs with PA chest. Views: 3 views COMPARISON: CT cervical spin wo con* [id number] 03/14/2023 1:51 PM FINDINGS: Lungs: Unremarkable. No consolidation. Pleural spaces: Unremarkable. No pleural effusion. No pneumothorax. Heart/Mediastinum: Cardiac size is within normal limits. Vasculature: Mild arteriosclerosis of the thoracic aorta. Bones/joints: No fracture seen about the right ribs, and particularly without identification a displaced rib fracture. Postsurgical hardware noted mid to lower cervical spine. Suggestion of previous fracture deformity of the right shoulder. XR/XR ribs RT mn 3V w [id number] IMPRESSION: 1. No fracture seen about the right ribs. Follow-up as clinically indicated. 2. No acute findings in the chest.
[2023-03-15 14:43] LABS: Basophils % 0.4 %; Eosinophils % 0.4 %; Hematocrit 30.2 % (37-53); Lymphocytes # 0.4 10^3/uL (0.8-4.8); Mean Corpuscular HGB Conc 32.8 g/dL (30-55); Mean Corpuscular Hemoglobin 36.3 pg (27-33); Mean Corpuscular Volume 110.6 fl (82-101); Mean Platelet Volume 13.4 fL (7.4-10.4); Monocytes # 0.6 10^3/uL (0.2-0.9); Monocytes % 13.3 %; Neutrophils # 3.59 10^3/uL (1.8-7.7); Neutrophils % 77.3 %; Nucleated Red Blood Cells % 0 %; Platelet Count 56 10^3/cmm (157-399); Red Blood Count 2.73 10^6/uL (3.85-5.65); Red Cell Distribution Width 14.6 % (12.1-15.1); White Blood Count 4.65 10^3/uL (3.29-11.43)
[2023-03-15 14:45] VITALS: BP 113/55; PULSE 86; RESP 16; O2SAT 99
[2023-03-15] MEDS: sodium chloride 0.9% 1,000 ML 999 ML IV (14:48)
[2023-03-15 15:01] LABS: Alanine Aminotransferase 24 U/L (0-41); Albumin Level 4.3 g/dL (3.5-5.2); Alkaline Phosphatase 81 U/L (40-130); Anion Gap 17.3 (5-19); Aspartate Amino Transferase 44 U/L (0-40); Blood Urea Nitrogen 21 mg/dL (8-23); Calcium 9.4 mg/dL (8.5-10.5); Carbon Dioxide 23 mmol/L (22-29); Chloride 102 mmol/L (98-107); Globulin 2.8 g/dL (1.3-4.6); Glucose 86 mg/dL (65-115); Osmolality Calculated 288 mOsm/kg (285-295); Potassium 4.3 mmol/L (3.5-5.1); Sodium 138 mmol/L (136-145); Total Bilirubin 1.6 mg/dL (0.15-1.2); Total Protein 7.1 g/dL (6.6-8.7)
[2023-03-15 16:57] VITALS: BP 113/55; PULSE 97; RESP 14; O2SAT 98
[2023-03-15 17:34] LABS: Bilirubin Urine Neg (Negative); Blood Urine 2+ (Negative); Glucose Urine UA Norm (Normal); Ketones Urine Negative (Negative); Nitrate Urine Negative (Negative); Protein Urine Neg (Negative); Urine Appearance Clear (CLEAR); Urine Color Yellow (Yellow); pH Urine 5 (5-7)
[2023-03-15 17:35] LABS: Add Urine Culture? Yes; Add Urine Microscopic? YES; Leukocyte Esterase Urine Negative (Negative); Squamous Epithelial Cell Urine 0-4 /hpf (0-5); Urobilinogen Urine 1 mg/dL (Negative); WBC Urine 0-4 /hpf (0-5)
[2023-03-15 17:55] VITALS: BP 201/85; PULSE 68; RESP 16; O2SAT 95
== END 2023-03-15 20:30 | disposition home or self-care (01) ==
PROVIDERS: Emergency Provider Family Medicine; PCP Family Medicine
DX: U07.1 COVID-19 (principal); W18.39XA Other fall on same level, initial encounter; Z79.84 Long term (current) use of oral hypoglycemic drugs; E11.9 Type 2 diabetes mellitus without complications; F03.90 Unspecified dementia, unspecified severity, without behavioral disturbance, psychotic disturbance, mood disturbance, and anxiety; Y92.129 Unspecified place in nursing home as the place of occurrence of the external cause
CPT/HCPCS: 70450; 71101; 80053; 81001; 85025; 87086; 96360; 99285; J7030

== ENCOUNTER → 2023-03-29 09:14 | Outpatient (BNVA) | payer MEDICARE, SELFPAY | PROVIDERS: PCP Family Medicine; Visit Provider Podiatrist Foot & Ankle Surgery | DX: B35.1 Tinea unguium (principal); E11.42 Type 2 diabetes mellitus with diabetic polyneuropathy; M20.40 Other hammer toe(s) (acquired), unspecified foot; I73.9 Peripheral vascular disease, unspecified; Z79.84 Long term (current) use of oral hypoglycemic drugs | CPT/HCPCS: 11721 ==

== ENCOUNTER 2023-04-14 03:36 | Emergency (ER) | payer MEDICARE, SELFPAY ==
[2023-04-14 03:37] VITALS: BP 124/58; PULSE 75; RESP 20; TEMP 36.3; O2SAT 98; BMI 19.8
--- NOTE | 2023-04-14 03:50 | CTR_ITS ---
PROCEDURE INFORMATION: Exam: CT Head Without Contrast Exam date and time: 04/14/2023 3:57 AM Age: 83 years old Clinical indication: Injury or trauma; Fall; Blunt trauma (contusions or hematomas); Patient HX: Patient fell out of bed striking occipital on floor. History of subdural hematoma. ; Additional info: Fall head inj TECHNIQUE: Imaging protocol: Computed tomography of the head without contrast. Radiation optimization: All CT scans at this facility use at least one of these dose optimization techniques: automated exposure control; mA and/or kV adjustment per patient size (includes targeted exams where dose is matched to clinical indication); or iterative reconstruction. REPORTING DATA: Count of CT and Cardiac NM exams in prior 12 months: This patient has received 7 known CTs and 0 known cardiac nuclear medicine studies in the 12 months prior to the current study. COMPARISON: CT head wo con* [id number] 03/15/2023 3:05 PM RADIATION DOSE METRICS: Total DLP (mGy-cm): 1092.64 FINDINGS: Brain: In the right frontal region there is a 6 x 16 x 7 mm extra-axial mass compatible with a meningioma, not significantly changed from the prior study. There is age-appropriate frontotemporal volume loss. There is no intra axial mass effect, midline shift, acute hemorrhage or acute lobar infarct. There is patchy hemispheric white matter hypodensity likely representing microvascular ischemic change. Cerebral ventricles: No ventriculomegaly. Paranasal sinuses: Mucosal thickening is noted within ethmoid air cells and visualized maxillary antra. Mastoid air cells: Visualized mastoid air cells are well aerated. Bones/joints: Unremarkable. No acute fracture. Soft tissues: Unremarkable. CT/CT head wo con* [id number] IMPRESSION: No acute intracranial process.
--- NOTE | 2023-04-14 04:50 | ED_ITS ---
HPI - Fall General: Chief Complaint: Fall Stated Complaint: FALL Time Seen by Provider: 04/14/23 03:40 History of Present Illness: 83-year-old male patient who lives in assisted living facility. He fell off the toilet at home, striking his head. He remembers falling. He was not knocked unconscious. He has a history of multiple head injuries including subdural hematomas in the last year. He is not anticoagulated. No history of fever or other recent illness. Associated symptoms-after fall: Reports headache(s) (Mild); Denies chest pain or neck pain Review of Systems General: Reports: ROS unobtainable due to medical condition (Patient is mildly a poor historian) Const: Denies: fever(s) Eyes: Denies: change in vision Card: Denies: chest pain Resp: Denies: dyspnea GI: Denies: vomiting Musc: Denies: neck pain Neuro: Reports: headache(s) (Mild); Denies: dizziness PFS ED PFSH: Medical History Dementia with behavioral disturbance Diabetes type 2, uncontrolled Subdural hematoma Physical Exam Const: COMMON NORMALS: no acute distress and alert GENERAL APPEARANCE: cooperative, well kempt and frail appearing; not ill appearing ORIENTATION/CONSCIOUSNESS: Yes oriented to person and Yes oriented to place HENMT: COMMON NORMALS: normocephalic, atraumatic and Normal external nose present HEAD & SCALP: normocephalic and atraumatic FACE & SINUS: normal facial exam and face symmetric NOSE: Normal external nose present and Normal nares present Eye: COMMON NORMALS: Equal, round and reactive pupils present and EOMs intact bilaterally PUPIL: Yes Equal, round and reactive pupils present Neck/C-Spine: GENERAL: Yes trachea midline CERVICAL SPINE: No Cervical spine tenderness Chest: CHEST: Yes Symmetrical chest wall rise Resp: COMMON NORMALS: normal respiratory effort, No retractions, No use of accessory muscles and clear to auscultation bilaterally AUSCULTATION: clear to auscultation bilaterally Cardio: COMMON NORMALS: regular rate and regular rhythm RATE: regular rate RHYTHM: regular rhythm GI: COMMON NORMALS: Normal to inspection, nondistended, normoactive bowel sounds present PALPATION: No Tenderness to palpation present (GI) Extremity: NARRATIVE EXTREMITY EXAM: Atraumatic Neuro: SENSORIUM/ORIENTATION: Yes alert, Yes oriented to person and Yes oriented to place CRANIAL NERVES: Yes CN normal except as noted SPEECH: speech normal Psych: APPEARANCE: Yes well kempt Skin: NARRATIVE SKIN EXAM: No lacerations Course Vital Signs: Vital signs: Vital Signs Temperature 97.4 F L 04/14/23 03:37 Pulse Rate 75 04/14/23 03:37 Respiratory Rate 20 H 04/14/23 03:37 Blood Pressure 124/58 04/14/23 03:37 Pulse Oximetry 98 04/14/23 03:37 MDM - Fall Medical Decision Making 83-year-old gentleman with a head injury. Head CT is negative for acute change. His vitals are quite stable. He will be allowed home back to the assisted living facility. Lab Data Radiology Impressions Head CT 04/14/23 03:50 IMPRESSION: No acute intracranial process. All radiology interpretation(s) finalized by discharge Discharge Plan Discharge Patient Disposition: Home Clinical Impression: Concussion without loss of consciousness Condition: Stable Prescriptions: No Action lidocaine HCl [Lidocaine Viscous] 2 % solution 1 applic topical ONCE Qty: 1 0RF (DME) lancets [TRUEplus Lancets] 28 gauge misc See Rx Instructions .ROUTE .MEDSUPPLY Qty: 100 Rx Instructions: As directed cholecalciferol (vitamin D3) [Vitamin D3] 10 mcg (400 unit) tablet 10 mcg PO DAILY glimepiride 4 mg tablet 4 mg PO DAILY citalopram 20 mg tablet 20 mg PO DAILY levetiracetam 500 mg tablet 500 mg PO BID atorvastatin 10 mg tablet 10 mg PO DAILY cholecalciferol (vitamin D3) 125 mcg (5,000 unit) tablet 5,000 unit PO DAILY pantoprazole 40 mg tablet,delayed release (DR/EC) 40 mg PO DAILY (DME) OneTouch Ultra Test Strip See Rx Instructions .ROUTE .MEDSUPPLY Qty: 10 Rx Instructions: As directed bisacodyl 10 mg suppository 10 mg [place] DAILY PRN (Reason: Constipation) acetaminophen 325 mg capsule 325 mg PO QID PRN (Reason: Pain) Rx Instructions: 2 tablets by mouth q6h prn for pain/headache/fever >100 degrees lidocaine HCl [Lidocaine Viscous] 2 % solution 1 applic topical ONCE Qty: 1 0RF magnesium hydroxide [Milk of Magnesia] 400 mg/5 mL Suspension 30 ml PO DAILY PRN (Reason: Constipation) Discharge Orders: Discharge ED (Routine); Ordered 04/14/23 Ordered By: Chivo Ospina Referrals: Cale Mohr DO [Primary Care Provider] - 4-7 days Patient Instructions: Concussion (ED) Activity Restrictions/Additional Instructions: Return for worsening mental status, vomiting, fever, other concerning symptoms. Coding Level of Care Code ED Manufacturing Engineer Machining for Mayra Pedroza
[2023-04-14 05:05] VITALS: BP 121/61; PULSE 66; RESP 16; O2SAT 97
[2023-04-14 05:13] VITALS: BP 121/61; PULSE 66; RESP 16; O2SAT 97
--- NOTE | 2023-04-14 05:16 | PC.NURSE ---
3 attempts made to call report back to [employer]. Sent to [employer] left message.
== END 2023-04-14 05:08 | disposition home or self-care (01) ==
PROVIDERS: Emergency Provider Emergency Medicine; PCP Family Medicine
DX: S06.0X0A Concussion without loss of consciousness, initial encounter (principal); Z79.84 Long term (current) use of oral hypoglycemic drugs; E11.9 Type 2 diabetes mellitus without complications; F03.90 Unspecified dementia, unspecified severity, without behavioral disturbance, psychotic disturbance, mood disturbance, and anxiety; W18.11XA Fall from or off toilet without subsequent striking against object, initial encounter; Y92.002 Bathroom of unspecified non-institutional (private) residence as the place of occurrence of the external cause
CPT/HCPCS: 70450; 99284

== ENCOUNTER 2023-04-15 06:50 | Emergency (ER) | payer MEDICARE, SELFPAY ==
[2023-04-15 06:55] VITALS: BP 119/67; PULSE 73; O2SAT 100; BMI 23.7
--- NOTE | 2023-04-15 07:01 | ED_ITS ---
HPI - Fall General: Chief Complaint: Fall Stated Complaint: FALL Time Seen by Provider: 04/15/23 06:53 Source: patient Mode of arrival: EMS History of Present Illness: 83-year-old male lives in assisted living at [facility] he was in the emergency room yesterday morning around 4 AM with similar complaint he had fallen. He had multiple falls in the past including having had a subdural hematoma. He is not on any anticoagulation. When he was seen [address] of his head was negative. MD complaint: fall Onset (ago): minute(s) Fall from: standing Fall witnessed: no Place fall occurred: [facility] Prolonged down time: unclear Context: tripped/slipped Location of injury: head Associated symptoms-after fall: Denies abdominal pain, chest pain or neck pain Review of Systems Const: Denies: fever(s) or chills Card: Denies: chest pain Resp: Denies: dyspnea GI: Denies: abdominal pain : Denies: dysuria, urinary frequency or urinary urgency Musc: Denies: neck pain or back pain Skin/Breast: Denies: rash PFSH ED PFSH: Medical History Dementia with behavioral disturbance Diabetes type 2, uncontrolled Subdural hematoma Physical Exam Const: GENERAL APPEARANCE: cooperative and comfortable ORIENTATION/CONSCIOUSNESS: Yes awake HENMT: COMMON NORMALS: normocephalic, atraumatic and hearing grossly normal bilaterally HEAD & SCALP: normocephalic and atraumatic Resp: COMMON NORMALS: normal respiratory effort, No retractions, No use of accessory muscles and clear to auscultation bilaterally AUSCULTATION: clear to auscultation bilaterally Cardio: COMMON NORMALS: regular rate, regular rhythm and No murmurs present (Cardio) RATE: regular rate RHYTHM: regular rhythm GI: COMMON NORMALS: Soft to palpation and No hepatosplenomegaly present AUSCULTATION: Yes normoactive bowel sounds PALPATION: Yes Soft to palpation, No Tenderness to palpation present (GI), No Guarding due to palpation present (GI) and Yes No hepatosplenomegaly present Extremity: COMMON NORMALS: normal to inspection, capillary refill normal, no clubbing, cyanosis or edema, no calf tenderness and no pedal edema Skin: COMMON NORMALS: no rashes or lesions noted GENERAL SKIN EXAM: no rashes or lesions noted Course Vital Signs: Vital signs: Vital Signs Pulse Rate 73 04/15/23 06:55 Blood Pressure 119/67 04/15/23 06:55 Pulse Oximetry 100 04/15/23 06:55 Oxygen Delivery Me thod Room Air 04/15/23 06:55 MDM - Fall Medical Decision Making Labs and imaging reviewed. Patient hypoglycemic he is on the sulfonylurea recommend that they stop that. He is on Keppra there is no sign of any seizure activity. He is not postictal on arrival. They are already planning to move him to a different level of care because of his frequent falls. Family member at the bedside states he is not been eating regularly which I think is also contributing to his falls he was hypoglycemic mildly when he arrived here he was given something to eat and it was rechecked. Finally he is mildly anemic this should be further evaluated as an outpatient and appears to be chronic based on his indices there is no active bleeding at this time and will need to be monitored. Medical Records I reviewed the patient's medical records. Lab Data I reviewed the patient's lab results. 04/15/23 07:08 04/15/23 07:08 Laboratory Results WBC 3.26 10^3/uL (3.29-11.43) L 04/15/23 07:08 RBC 2.32 10^6/uL (3.85-5.65) L 04/15/23 07:08 Hgb 8.30 g/dL (11.27-16.99) L 04/15/23 07:08 Hct 26.1 % (37-53) L 04/15/23 07:08 MCV 112.5 fl (82-101) H 04/15/23 07:08 MCH 35.8 pg (27-33) H 04/15/23 07:08 MCHC 31.8 g/dL (30-55) 04/15/23 07:08 RDW 15.5 % (12.1-15.1) H 04/15/23 07:08 Plt Count 75 10^3/cmm (157-399) L 04/15/23 07:08 MPV 11.8 fL (7.4-10.4) H 04/15/23 07:08 Neut % (Auto) 76.8 % 04/15/23 07:08 Lymph % (Auto) 9.8 % 04/15/23 07:08 [place] % (Auto) 10.1 % 04/15/23 07:08 Eos % (Auto) 1.8 % 04/15/23 07:08 Baso % (Auto) 0.6 % 04/15/23 07:08 Neut # (Auto) 2.50 10^3/uL (1.8-7.7) 04/15/23 07:08 Lymph # (Auto) 0.3 10^3/uL (0.8-4.8) L 04/15/23 07:08 [place] # (Auto) 0.3 10^3/uL (0.2-0.9) 04/15/23 07:08 Eos # (Auto) 0.1 10^3/uL (0.0-0.8) 04/15/23 07:08 Baso # (Auto) 0.0 10^3/uL (0.0-0.1) 04/15/23 07:08 Nucleated RBC % (auto) 0 % 04/15/23 07:08 Nucleated RBCs # 0.0 /100WBC 04/15/23 07:08 Sodium 141 mmol/L (136-145) 04/15/23 07:08 Potassium 3.9 mmol/L (3.5-5.1) 04/15/23 07:08 Chloride 107 mmol/L (98-107) 04/15/23 07:08 Carbon Dioxide 25 mmol/L (22-29) 04/15/23 07:08 Anion Gap 12.9 (5-19) 04/15/23 07:08 BUN 15 mg/dL (8-23) 04/15/23 07:08 Creatinine 0.9 mg/dL (0.7-1.2) 04/15/23 07:08 GFR Calculation Not Reportable 04/15/23 07:08 Glucose 64 mg/dL (65-115) L 04/15/23 07:08 Calculated Osmolality 291 mOsm/kg (285-295) 04/15/23 07:08 Calcium 8.9 mg/dL (8.5-10.5) 04/15/23 07:08 Total Bilirubin 2.0 mg/dL (0.15-1.2) H 04/15/23 07:08 AST 31 U/L (0-40) 04/15/23 07:08 ALT 19 U/L (0-41) 04/15/23 07:08 Alkaline Phosphatase 86 U/L (40-130) 04/15/23 07:08 Total Protein 6.5 g/dL (6.6-8.7) L 04/15/23 07:08 Albumin 3.7 g/dL (3.5-5.2) 04/15/23 07:08 Globulin 2.8 g/dL (1.3-4.6) 04/15/23 07:08 All radiology interpretation(s) finalized by discharge Discharge Plan Discharge Patient Disposition: Home Clinical Impression: Fall, History of recent fall, Dementia, Hypoglycemia, Serum total bilirubin elevated, Anemia, macrocytic Condition: Stable Prescriptions: Discontinued glimepiride 4 mg tablet 4 mg PO DAILY No Action lidocaine HCl [Lidocaine Viscous] 2 % solution 1 applic topical ONCE Qty: 1 0RF (DME) lancets [TRUEplus Lancets] 28 gauge misc See Rx Instructions .ROUTE .MEDSUPPLY Qty: 100 Rx Instructions: As directed cholecalciferol (vitamin D3) [Vitamin D3] 10 mcg (400 unit) tablet 10 mcg PO DAILY citalopram 20 mg tablet 20 mg PO DAILY levetiracetam 500 mg tablet 500 mg PO BID atorvastatin 10 mg tablet 10 mg PO DAILY cholecalciferol (vitamin D3) 125 mcg (5,000 unit) tablet 5,000 unit PO DAILY pantoprazole 40 mg tablet,delayed release (DR/EC) 40 mg PO DAILY (DME) OneTouch Ultra Test Strip See Rx Instructions .ROUTE .MEDSUPPLY Qty: 10 Rx Instructions: As directed bisacodyl 10 mg suppository 10 mg [place] DAILY PRN (Reason: Constipation) acetaminophen 325 mg capsule 325 mg PO QID PRN (Reason: Pain) Rx Instructions: 2 tablets by mouth q6h prn for pain/headache/fever >100 degrees lidocaine HCl [Lidocaine Viscous] 2 % solution 1 applic topical ONCE Qty: 1 0RF magnesium hydroxide [Milk of Magnesia] 400 mg/5 mL Suspension 30 ml PO DAILY PRN (Reason: Constipation) Discharge Orders: Discharge ED (Routine); Ordered 04/15/23 Ordered By: Eyad Patel Referrals: Cale Mohr, [Primary Care Provider] - Discharge Diet: Usual diet Discharge Activity: Increase activity as tolerated Patient Instructions: Opioid Safety, Pain Management Activity Restrictions/Additional Instructions: You were seen today for a fall. Your glucose was 64. Recommend he stop the glimepiride. 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 Recommend level of care be reevaluated due to recurrent falls. Coding Level of Care Code ED Shale Processing Technician for Mayra Pedroza
--- NOTE | 2023-04-15 07:01 | CT_ITS ---
WS: [id number] CT HEAD NONCONTRAST HISTORY: Trauma TECHNIQUE: Contiguous axial imaging performed through the brain in 2.5 mm imaging. Bone and soft tiss ue windows. Sagittal and coronal reformats reviewed. All CT scans at [facility] use at least one of these dose optimization techniques: automated exposure control; mA and/or kV adjustment per pa tient size (includes targeted exams where dose is matched to clinical indication); or iterative recon struction. DLP: 1402.85 mGy.cm COMPARISON: 04/14/2023, 03/15/2023 Patient has a known, previously described and stable RIGHT frontal extra-axial mass which is consiste nt with a meningioma. No acute extra-axial blood or fluid collections. Moderate atrophy. No significant atrophy involves the frontal lobes. No interval blade changer several prior CT examinations. Moderate small vessel ischemic disease. Mild bilateral cerebellar atrophy. Ventricles: Mildly prominent ventricles and extra-axial spaces on the basis of atrophy. Paranasal sinuses: As visualized are clear. Mastoid air cells: Well pneumatized. Calvarium and scalp: Skull is intact with no soft tissue edema or swelling. Craniocervical junction is negative. Cervical hardware is noted on the localizer image. IMPRESSION: 1. Stable noncontrast head CT. No acute subdural hematoma. 2. Stable RIGHT frontal extra-axial soft tissue mass consistent with a meningioma over multiple prior studies. 3. Cerebral and cerebellar atrophy. Most significant atrophy involves the frontal lobes.
--- NOTE | 2023-04-15 07:01 | CT_ITS ---
WS: [id number] CT CERVICAL SPINE HISTORY: Trauma TECHNIQUE: Contiguous 2.0 mm axial imaging performed through the entire cervical spine. Sagittal and coronal reformats also performed. All CT scans at [facility] use at least one of these dose o ptimization techniques: automated exposure control; mA and/or kV adjustment per patient size (include s targeted exams where dose is matched to clinical indication); or iterative reconstruction. DLP: 1402.85 mGy.cm COMPARISON: 03/14/2023 Remote anterior cervical fusion extends from C3-C6. Interbody spacers at C3-4, C4-5 and C5-6. Morseli zed bone graft to the large posterior laminectomy defects at the surgical site. There is no complete fusion of the bone graft posteriorly. Large anterior osteophytes extend from C6-C7 and C7-T1. Appeara nce of the anterior bridging osteophyte appears similar to the prior study with no acute fracture. Pa rtial fusion across the facet joints. Cervical lordosis is mildly straightened. Lateral masses of C1 and C2 are aligned. Craniocervical junction is normal. Diffuse facet joint arthropathy. No acute fractures. Lung apices are clear. IMPRESSION: 1. Status [place] [address] with interbody spacers and decompressive laminecto my. 2. No acute fractures. 3. Similar CT cervical spine as 03/14/2023.
[2023-04-15 07:19] LABS: Basophils % 0.6 %; Eosinophils # 0.1 10^3/uL (0.0-0.8); Eosinophils % 1.8 %; Hematocrit 26.1 % (37-53); Lymphocytes # 0.3 10^3/uL (0.8-4.8); Lymphocytes % 9.8 %; Mean Corpuscular HGB Conc 31.8 g/dL (30-55); Mean Corpuscular Hemoglobin 35.8 pg (27-33); Mean Corpuscular Volume 112.5 fl (82-101); Mean Platelet Volume 11.8 fL (7.4-10.4); Monocytes # 0.3 10^3/uL (0.2-0.9); Monocytes % 10.1 %; Neutrophils % 76.8 %; Nucleated Red Blood Cells % 0 %; Platelet Count 75 10^3/cmm (157-399); Red Blood Count 2.32 10^6/uL (3.85-5.65); Red Cell Distribution Width 15.5 % (12.1-15.1); White Blood Count 3.26 10^3/uL (3.29-11.43)
[2023-04-15 07:35] LABS: Alanine Aminotransferase 19 U/L (0-41); Albumin Level 3.7 g/dL (3.5-5.2); Alkaline Phosphatase 86 U/L (40-130); Anion Gap 12.9 (5-19); Aspartate Amino Transferase 31 U/L (0-40); Blood Urea Nitrogen 15 mg/dL (8-23); Calcium 8.9 mg/dL (8.5-10.5); Carbon Dioxide 25 mmol/L (22-29); Chloride 107 mmol/L (98-107); Creatinine Clr Calc Pharmacy 68.0465; Globulin 2.8 g/dL (1.3-4.6); Glucose 64 mg/dL (65-115); Osmolality Calculated 291 mOsm/kg (285-295); Potassium 3.9 mmol/L (3.5-5.1); Sodium 141 mmol/L (136-145); Total Protein 6.5 g/dL (6.6-8.7)
--- NOTE | 2023-04-15 08:00 | PC.NURSE ---
FSBS noted to be low on lab values. Pt given 2 orange juices and a breakfast tray ordered.
[2023-04-15 08:32] LABS: Glucose Point of Care 56 mg/dL (70-110)
--- NOTE | 2023-04-15 08:34 | PC.NURSE ---
FSBS now 56. MD notified. Pt currently eating breakfast tray with family at bedside. NAD. Pt is alert and denies any symptoms. Will recheck BS.
[2023-04-15 08:47] VITALS: BP 142/96; PULSE 85; RESP 18; O2SAT 96
[2023-04-15 09:24] LABS: Glucose Point of Care 162 mg/dL (70-110)
== END 2023-04-15 09:46 | disposition home or self-care (01) ==
PROVIDERS: Emergency Provider Family Medicine; PCP Family Medicine
DX: F03.90 Unspecified dementia, unspecified severity, without behavioral disturbance, psychotic disturbance, mood disturbance, and anxiety (principal); R17 Unspecified jaundice; D53.9 Nutritional anemia, unspecified; E11.649 Type 2 diabetes mellitus with hypoglycemia without coma; W19.XXXA Unspecified fall, initial encounter; Y92.099 Unspecified place in other non-institutional residence as the place of occurrence of the external cause; R29.6 Repeated falls
CPT/HCPCS: 36415; 36416; 70450; 72125; 80053; 82962; 85025; 99284

== ENCOUNTER 2023-07-26 08:37 | Outpatient (CLI) | payer MEDICARE, SELFPAY ==
--- NOTE | 2023-07-26 | FL_ITS ---
Exam: FL barium swallow [id number] Date/Time of Exam: 07/26/2023 8:48 AM Reason For Exam: DYSPHAGIA Fluoroscopy time: The patient experienced significant aspiration of barium into the upper trachea during the exam. Opacification of the esophagus showed no evidence of stricture or mass. Normal esophageal motility. No reflux or hiatal hernia was noted. IMPRESSION: 1. Significant aspiration identified. 2. No indication of esophageal mass, stricture or motility disorder otherwise. Recommendations: Modified barium swallow test is suggested for more detailed work-up. MTDD
--- NOTE | 2023-07-26 08:46 | US_ITS ---
WS: [id number] RIGHT UPPER QUADRANT ULTRASOUND HISTORY: CIRRHOSIS LIVER FOCUS/CANCER SCREENING COMPARISON: 01/18/2023 Liver: 14.4 cm in length. Small shrunken liver. Coarse echotexture with retracted capsule. Nodular hanson rface of the liver. No mass. Normal portal flow. Portal Vein: Normal hepatopetal flow with monophasic waveform. Gallbladder: Not visualized. CBD: 0.3 cm Pancreas: Completely obscured by bowel gas. Right kidney: 9.9 cm in length. Normal size and echogenicity. No hydronephrosis or mass. Aorta and IVC: Not visualized. There is a very tiny amount of ascites adjacent to the liver. IMPRESSION: 1. Moderate changes of hepatic cirrhosis. No intrahepatic mass. 2. Normal hepatopetal flow in the portal vein. 3. Small amount of ascites adjacent to the liver. 4. Pancreas not visualized. 5. Gallbladder is also not visualized.
== END 2023-07-26 08:38 | disposition home or self-care (01) ==
LOC: RAD 08:38
PROVIDERS: PCP Family Medicine; Visit Provider Internal Medicine Gastroenterology
DX: R13.10 Dysphagia, unspecified (principal); K74.60 Unspecified cirrhosis of liver; Z12.89 Encounter for screening for malignant neoplasm of other sites; R18.8 Other ascites
CPT/HCPCS: 74220; 76705

== ENCOUNTER 2023-08-28 10:11 | Outpatient (CLI) | payer MEDICARE, SELFPAY ==
--- NOTE | 2023-08-28 10:14 | FL_ITS ---
WS: [id number] EXAMINATION: FL barium swallow modifd [id number] ORDER DATE: 08/28/2023 10:15 AM REASON FOR EXAM: Other dysphagia COMPARISON: None available. FLUOROSCOPY TIME: 2min [id number] # OF SPOT FILMS: 1 single image was obtained with multiple video fluoroscopy runs FINDINGS: There is adequate oral motor control. Free spillover of the ingested consistencies were identified with pooling throughout noted in the alvin lecula. Thin liquids were noted to penetrate without aspiration or cough reflex. There was significant retention within the vallecula including the ingested crackers and pill. This c leared with nectar consistency liquid. IMPRESSION: There was penetration without aspiration of thin liquids. There is significant pooling and residual within the vallecula.
== END 2023-08-28 10:12 | disposition home or self-care (01) ==
LOC: RAD 10:11
PROVIDERS: PCP Family Medicine; Visit Provider Family Medicine
DX: R13.19 Other dysphagia (principal)
CPT/HCPCS: 74230; 92611

== ENCOUNTER 2023-10-12 16:21 | Emergency (ER) | payer MEDICARE, SELFPAY ==
--- NOTE | 2023-10-12 16:35 | XRR_ITS ---
PROCEDURE INFORMATION: Exam: XR Left Shoulder Exam date and time: 10/12/2023 6:13 PM Age: 83 years old Clinical indication: Left; Patient HX: Lt shoulder pain post fall TECHNIQUE: Imaging protocol: Radiologic exam of the left shoulder. Views: 2 or more views. COMPARISON: CT cervical spin wo con* [id number] 04/15/2023 7:27 AM FINDINGS: Bones/joints: The bones are demineralized. Age-indeterminate distal left clavicular fracture, likely acute. No other evidence of acute fracture. Glenohumeral alignment is intact. The humerus is intact. Soft tissues: Soft tissue swelling of the clavicle further suggesting acute fracture. XR/XR shoulder LT min 2V* [id number] IMPRESSION: Age-indeterminate distal left clavicular fracture, likely acute.
[2023-10-12 16:36] VITALS: BP 103/54; PULSE 86; RESP 16; TEMP 37; O2SAT 100; BMI 25.1
--- NOTE | 2023-10-12 18:38 | ED_ITS ---
HPI - Extremity Problem General: Chief complaint: Extremity Injury, Upper Stated complaint: fall, left shoulder pain Time Seen by Provider: 10/12/23 18:25 History of Present Illness: 83-year-old pleasant male patient comes in today after a fall at an assisted living facility. Patient reports landing on his left shoulder. Patient has no visible injuries. Patient has tenderness to the distal clavicle area of the left shoulder. Patient has dementia. Review of Systems General: Reports: 10 or more systems reviewed and unremarkable except in HPI and below Musc: Reports: joint pain (Left shoulder) [facility] ED PFSH: Medical History Dementia with behavioral disturbance Diabetes type 2, uncontrolled Subdural hematoma Physical Exam Const: COMMON NORMALS: alert HENMT: COMMON NORMALS: normocephalic and atraumatic HEAD & SCALP: normocephalic and atraumatic Neck/C-Spine: COMMON NORMALS: full ROM Resp: COMMON NORMALS: normal respiratory effort and clear to auscultation bilaterally AUSCULTATION: clear to auscultation bilaterally Cardio: COMMON NORMALS: regular rate RATE: regular rate GI: COMMON NORMALS: non-tender Extremity: LEFT UPPER EXTREMITY: Yes shoulder joint (Distal clavicle tenderness) Neuro: SENSORIUM/ORIENTATION: Yes alert Skin: COMMON NORMALS: turgor normal GENERAL SKIN EXAM: turgor normal Course Vital Signs: Vital signs: Vital Signs Temperature 98.6 F 10/12/23 16:36 Pulse Rate 86 10/12/23 16:36 Respiratory Rate 16 10/12/23 16:36 Blood Pressure 103/54 10/12/23 16:36 Pulse Oximetry 100 10/12/23 16:36 Oxygen Delivery Me thod Room Air 10/12/23 16:36 MDM - Extremity (Nontraumatic) Medical Decision Making 83-year-old male patient comes in today with tenderness to the left shoulder. On exam patient has some distal clavicle tenderness with abnormality of the AC joint. Differential diagnosis includes AC joint separation, distal clavicle fracture, contusion, proximal humeral fracture. X-ray notes a distal left clavicle fracture. Patient was placed in a sling with recommendations to follow-up with orthopedics office in 1 week. Family reports understanding of care plan and need for follow-up or return to the ER. Lab Data Radiology Impressions Shoulder X-Ray 10/12/23 16:35 IMPRESSION: Age-indeterminate distal left clavicular fracture, likely acute. All radiology interpretation(s) finalized by discharge Discharge Plan Discharge Patient Disposition: Home Clinical Impression: Closed fracture of distal clavicle Qualifiers: Encounter type: initial encounter Fracture alignment: displaced Laterality: left Qualified Code(s): S42.032A - Displaced fracture of lateral end of left clavicle, initial encounter for closed fracture Condition: Stable Prescriptions: No Action lidocaine HCl [Lidocaine Viscous] 2 % solution 1 applic topical ONCE Qty: 1 0RF (DME) lancets [TRUEplus Lancets] 28 gauge misc See Rx Instructions .ROUTE .MEDSUPPLY Qty: 100 Rx Instructions: As directed cholecalciferol (vitamin D3) [Vitamin D3] 10 mcg (400 unit) tablet 10 mcg PO DAILY citalopram 20 mg tablet 20 mg PO DAILY levetiracetam 500 mg tablet 500 mg PO BID atorvastatin 10 mg tablet 10 mg PO DAILY cholecalciferol (vitamin D3) 125 mcg (5,000 unit) tablet 5,000 unit PO DAILY pantoprazole 40 mg tablet,delayed release (DR/EC) 40 mg PO DAILY (DME) OneTouch Ultra Test Strip See Rx Instructions .ROUTE .MEDSUPPLY Qty: 10 Rx Instructions: As directed bisacodyl 10 mg suppository 10 mg [place] DAILY PRN (Reason: Constipation) acetaminophen 325 mg capsule 325 mg PO QID PRN (Reason: Pain) Rx Instructions: 2 tablets by mouth q6h prn for pain/headache/fever >100 degrees lidocaine HCl [Lidocaine Viscous] 2 % solution 1 applic topical ONCE Qty: 1 0RF lidocaine HCl [Lidocaine Viscous] 2 % solution 1 applic topical ONCE Qty: 1 0RF lidocaine HCl [Lidocaine Viscous] 2 % solution 1 applic topical ONCE Qty: 1 0RF olanzapine [Zyprexa] 2.5 mg tablet 2.5 mg PO DAILY Qty: 30 11RF lorazepam 0.5 mg tablet 0.5 mg PO BID PRN (Reason: anxiety) Qty: 60 5RF magnesium hydroxide [Milk of Magnesia] 400 mg/5 mL Suspension 30 ml PO DAILY PRN (Reason: Constipation) Discharge Orders: Discharge ED (Routine); Ordered 10/12/23 Ordered By: Wesly Lira Referrals: Cale Mohr DO [Primary Care Provider] - Discharge Diet: Usual diet Discharge Activity: Increase activity as tolerated Patient Instructions: Fractures - Clavicle (Adult) Activity Restrictions/Additional Instructions: Sling arm for comfort and protection of fracture. Activity as tolerated. Follow-up with orthopedics for further evaluation and treatment. Return to ED for new concerns. Coding Level of Care Code ED Product Safety Administrator for Mayra Pedroza
[2023-10-12 20:03] VITALS: BP 105/58; PULSE 84; RESP 14; TEMP 37; O2SAT 100
--- NOTE | 2023-10-15 15:34 | PC.SOCIAL ---
Ortho Referral Referral to clinic at this time. Clinic to contact patient with appt date/time.
== END 2023-10-12 19:41 | disposition home or self-care (01) ==
PROVIDERS: Emergency Provider Nurse Practitioner Family; PCP Family Medicine
DX: S42.032A Displaced fracture of lateral end of left clavicle, initial encounter for closed fracture (principal); F03.90 Unspecified dementia, unspecified severity, without behavioral disturbance, psychotic disturbance, mood disturbance, and anxiety; E11.9 Type 2 diabetes mellitus without complications; W19.XXXA Unspecified fall, initial encounter; Y92.099 Unspecified place in other non-institutional residence as the place of occurrence of the external cause
CPT/HCPCS: 73030; 99283

== ENCOUNTER → 2023-10-18 11:53 | Outpatient (BNVA) | payer MEDICARE, SELFPAY | PROVIDERS: PCP Family Medicine; Referring Provider Nurse Practitioner Family; Visit Provider Student in an Organized Health Care Education/Training Program | DX: S42.032A Displaced fracture of lateral end of left clavicle, initial encounter for closed fracture (principal); W19.XXXA Unspecified fall, initial encounter | CPT/HCPCS: 23500; 73000; 99204 ==

== ENCOUNTER → 2023-11-21 10:53 | Outpatient (BNVA) | payer MEDICARE, SELFPAY | PROVIDERS: PCP Family Medicine; Visit Provider Student in an Organized Health Care Education/Training Program | DX: X58.XXXA Exposure to other specified factors, initial encounter; S42.032A Displaced fracture of lateral end of left clavicle, initial encounter for closed fracture | CPT/HCPCS: 73000; 99213 ==

== ENCOUNTER → 2024-02-14 10:00 | Outpatient (BNVA) | payer MEDICARE, SELFPAY | PROVIDERS: PCP Family Medicine; Visit Provider Physician Assistant | DX: S42.002A Fracture of unspecified part of left clavicle, initial encounter for closed fracture (principal); X58.XXXA Exposure to other specified factors, initial encounter | CPT/HCPCS: 73000; 99213 ==

== ENCOUNTER 2024-03-11 08:45 | Outpatient (CLI) | payer MEDICARE, SELFPAY ==
--- NOTE | 2024-03-11 08:50 | US_ITS ---
WS: [id number] RIGHT UPPER QUADRANT ULTRASOUND HISTORY: CIRRHOSIS, NON ALCOHOLIC COMPARISON: 07/26/2023 Liver: 14.5 cm in length. Small shrunken liver with nodular surface. Very coarse echotexture. No mass is identified by ultrasound. Portal Vein: Normal hepatopetal flow with monophasic waveform. Gallbladder: Gallbladder is not definitely identified. There is dense shadowing from the gallbladder fossa which may be a stone filled gallbladder. No prior surgery was indicated. CBD: 0.5 cm Pancreas: Not visualized. Right kidney: 9.2 cm in length. Normal size and echogenicity. No hydronephrosis or mass. Aorta and IVC: Unremarkable abdominal aorta and IVC. Small amount of ascites adjacent to the liver. US/US abdomen limited 62149 IMPRESSION: 1. Cirrhotic, contracted liver with no bile duct dilatation. No mass identifie d but the entire liver is not well visualized. 2. Small amount of ascites adjacent to the liver. Ascites volume is small but increased since the prior study. 3. Gallbladder not identified. Large amount of shadowing from the region of th e gallbladder fossa. This may represent a stone filled gallbladder.
== END 2024-03-11 08:46 | disposition home or self-care (01) ==
LOC: RAD 08:47
PROVIDERS: PCP Family Medicine; Visit Provider Internal Medicine Gastroenterology
DX: K74.60 Unspecified cirrhosis of liver (principal); R18.8 Other ascites; R93.89 Abnormal findings on diagnostic imaging of other specified body structures
CPT/HCPCS: 76705

== ENCOUNTER 2024-07-10 07:46 | Emergency (ER) | payer MEDICARE, SELFPAY ==
[2024-07-10 07:47] VITALS: BP 116/60; PULSE 79; RESP 18; TEMP 36.7; O2SAT 95; BMI 18.1
[2024-07-10 08:04] VITALS: BP 116/60; PULSE 83; O2SAT 98
--- NOTE | 2024-07-10 08:08 | CT_ITS ---
WS: [id number] CT HEAD TECHNIQUE: Noncontrast CT of the head obtained from the skullbase to the vertex. CLINICAL INFORMATION: fall with head injury unk loc COMPARISON: None. DLP: 2327.[address] scans at [facility] use at least one of these dose optimization techniques: automated e xposure control; mA and/or kV adjustment per patient size (includes targeted exams where dose is matc hed to clinical indication); or iterative reconstruction. FINDINGS: No evidence of intracranial hemorrhage. Large RIGHT frontal extra-axial meningioma has significantly increased in size from previous with mass effect on the underlying RIGHT frontal lobe. No underlying edema. Meningioma measures approximately 3.6 x 1.9 cm. Previously this measured approximately 1.3 x 0 .5 cm. Moderate small vessel changes. Moderate parenchymal volume loss. No hydrocephalus. Vascular calcifica tion. Mastoid air cells are well aerated. Inflammatory changes in the paranasal sinuses. CT/CT head wo con* [id number] IMPRESSION: 1. RIGHT frontal meningioma has significantly increased in size compared to pr evious described above with mass effect on the RIGHT frontal lobe. No underlyin g edema. Recommend follow-up with neurosurgery. 2. Moderate small vessel changes with moderate parenchymal volume loss. 3. Vascular calcification. 4. No other acute findings. Notified Holden Armendariz at 07/10/2024 8:40 AM.
--- NOTE | 2024-07-10 08:08 | CT_ITS ---
WS: [id number] CT CERVICAL TRAUMA TECHNIQUE: Noncontrast CT of the cervical spine with coronal and sagittal reformatted images. CLINICAL INFORMATION: fall from standing with pain COMPARISON: None. DLP: 2327.[address] scans at [facility] use at least one of these dose optimization techniques: automated e xposure control; mA and/or kV adjustment per patient size (includes targeted exams where dose is matc hed to clinical indication); or iterative reconstruction. FINDINGS: Type II dens fracture with mild widening measuring 2.4 mm. C1-2 articulation is maintained. Pannus at the C1-2 junction. No other visualized acute fractures. Prior postoperative changes ACDF C3-C6 with wide decompressive laminectomies. Normal prevertebral soft tissues. Mastoids air cells are well aerated. CT/CT cervical spin wo con* [id number] IMPRESSION: 1. Type II dens fracture with widening measuring approximately 2.4 mm. C1-C2 a rticulation is maintained. 2. Prior postoperative changes ACDF C3-C6 with wide decompressive laminectomy defects.
[2024-07-10 08:15] LABS: Basophils # 0.1 10^3/uL (0.0-0.1); Basophils % 0.7 %; Eosinophils # 0.2 10^3/uL (0.0-0.8); Hematocrit 31.7 % (37-53); Lymphocytes # 1.1 10^3/uL (0.8-4.8); Mean Corpuscular HGB Conc 31.2 g/dL (30-55); Mean Corpuscular Hemoglobin 31.1 pg (27-33); Mean Corpuscular Volume 99.7 fl (82-101); Mean Platelet Volume 11.2 fL (7.4-10.4); Monocytes # 0.4 10^3/uL (0.2-0.9); Monocytes % 5.3 %; Neutrophils # 5.27 10^3/uL (1.8-7.7); Neutrophils % 72.1 %; Nucleated Red Blood Cells % 0 %; Platelet Count 125 10^3/cmm (157-399); Red Blood Count 3.18 10^6/uL (3.85-5.65); Red Cell Distribution Width 17.3 % (12.1-15.1); White Blood Count 7.32 10^3/uL (3.29-11.43)
--- NOTE | 2024-07-10 08:20 | ED_ITS ---
HPI - Head Injury 2 General: Chief complaint: Head Injury Stated complaint: FALL Time Seen by Provider: 07/10/24 07:49 History of Present Illness: 84-year-old male with known history of d ementia [facility] chief complaint of reported fall from standing patient does not have any memory of the count apparently the patient has had some weird labs at the [facility]iary also sedimentary be rechecked including his hemoglobin and platelet count patient reports a mild headache he reports no other associated issues besides some mild neck pain. He presents by EMS for further assessment and management. Associated symptoms: Deny nausea or vomiting Related Data Home Medications Medication Instructions Recorded Confirmed citalopram 20 mg tablet 20 mg PO DAILY 08/26/22 07/10/24 lancets 28 gauge (TRUEplus Lancets) #100 ea 08/26/22 07/10/24 blood sugar diagnostic (OneTouch #10 ea 01/18/23 07/10/24 Ultra Test strips) acetaminophen 325 mg capsule 325 mg PO QID PRN Pain 02/20/23 07/10/24 bisacodyl 10 mg rectal suppository 10 mg ME DAILY PRN Constipation 02/20/23 07/10/24 magnesium hydroxide 400 mg/5 mL 30 ml PO DAILY PRN Constipation 03/14/23 07/10/24 oral suspension (Milk of Magnesia) furosemide 40 mg tablet 40 mg PO DAILY 03/30/24 07/10/24 hydrocodone 5 mg-acetaminophen 325 1 tab PO Q6H PRN Pain 03/30/24 07/10/24 mg tablet metformin 500 mg tablet 500 mg PO BID 03/30/24 07/10/24 nystatin 100,000 unit/gram topical 1 applic topical BID 03/30/24 07/10/24 powder potassium chloride 10 mEq 10 meq PO DAILY 03/30/24 07/10/24 tablet,extended release(part/cryst) sennosides 8.6 mg capsule (senna) 17.2 mg PO DAILY PRN cosntipation 03/30/24 07/10/24 meclizine 12.5 mg tablet See Rx Instructions .Route 07/10/24 07/10/24 .COMPLEX PRN Nausea And Vomiting sodium phosphates 19 gram-7 118 ml ME DAILY PRN Constipation 07/10/24 07/10/24 gram/118 mL enema (Fleet Enema) trazodone 100 mg tablet 100 mg PO QPM 07/10/24 07/10/24 Previous Rx's Medication Instructions Recorded lorazepam 0.5 mg tablet 0.5 mg PO BID PRN anxiety #60 tabs 04/15/23 Allergies Allergy/AdvReac Type Severity Reaction Status Date / Time No Known Allergies Allergy Verified 07/07/24 15:00 Review of Systems 2 General: Reports: 10 or more systems reviewed and unremarkable except in HPI and below Const: Denies: fever(s), chills, fatigue or malaise Eyes: Denies: change in vision or blurry vision Card: Denies: chest pain or palpitations Resp: Denies: dyspnea or productive cough GI: Denies: abdominal pain, nausea or vomiting : Denies: flank pain Musc: Denies: extremity pain or extremity swelling Skin/Breast: Reports: other (Noted to the anterior forehead); Denies: rash or pruritus Neuro: Reports: headache(s) Psych: Denies: anxiety or depression Morris/Lymph: Denies: easy bleeding All/Imm: Denies: urticaria, throat swelling or facial swelling PFSH ED 2 PFSH: Medical History Type 2 diabetes mellitus with foot ulcer Pressure ulcer of left heel, stage 3 Dementia with behavioral disturbance Subdural hematoma Diabetes type 2, uncontrolled Social History Smoking and tobacco/nicotine status: unknown if used tobacco/nicotine Housing: Long-Term Marital status: Physical Exam 2 Narrative: EXAM NARRATIVE: 3 cm abrasion small hematoma appreciated the anterior forehead minimal bleeding noted nonpulsatile no underlying crepitus or step-offs appreciated. Const: COMMON NORMALS: no acute distress, patient oriented x3 and healthy appearing HENMT: COMMON NORMALS: normocephalic and atraumatic HEAD & SCALP: n ormocephalic and atraumatic Eye: COMMON NORMALS: Equal, round and reactive pupils present and EOMs intact bilaterally PUPIL: Yes Equal, round and reactive pupils present Neck/C-Spine: COMMON NORMALS: full ROM, supple and no JVD Lymph: LYMPHATIC: no lymphadenopathy noted Chest: COMMONS NORMALS: normal inspection of the chest and normal palpation of entire chest wall Resp: COMMON NORMALS: normal respiratory effort, No retractions and clear to auscultation bilaterally EFFORT & INSPECTION: Yes able to speak in complete sentences and Yes symmetric chest movement AUSCULTATION: clear to auscultation bilaterally Cardio: COMMON NORMALS: no JVD, regular rate and regular rhythm RATE: r egular rate RHYTHM: regular rhythm GI: COMMON NORMALS: Normal to inspection, nondistended, normoactive bowel sounds present, Soft to palpation and non-tender INSPECTION: Yes normal to inspection PALPATION: Yes Soft to palpation : COMMON NORMALS: Yes no CVA tenderness BLADDER/KIDNEY EXAM: Yes no CVA tenderness Back/Pelvis: COMMON NORMALS: no CVA tenderness Extremity: COMMON NORMALS: normal to inspection and full ROM Neuro: COMMON NORMALS: patient oriented x3, CN's II-XII intact bilaterally, moves all extremities and no focal motor deficits Psych: COMMON NORMALS: mental status grossly normal, Normal thought process present, cooperative and normal affect THOUGHT PROCESS: Normal thought process present Skin: COMMON NORMALS: no rashes or lesions noted GENERAL SKIN EXAM: no rashes or lesions noted Course 2 Vital Signs: Vital signs: Vital Signs Temperature 98.1 F 07/10/24 07:47 Pulse Rate 69 07/10/24 09:45 Respiratory Rate 18 07/10/24 07:47 Blood Pressure 125/81 07/10/24 09:45 Pulse Oximetry 97 07/10/24 09:45 Oxygen Delivery Me thod Room Air 07/10/24 08:04 MDM - Head Injury Medcial Decision Making Due to patient's symptoms and condition lab work and imaging will be obtained we will continue to follow. Lab work came back unremarkable patient CT revealed a type II dens fracture of the C1-C2 articulation widening at 2.4 mm patient has had a prior decompressive laminectomy C3-C6 in addition the patient is noted have a right frontal meningioma has increased in size from previous with a mass effect in the right frontal lobe with no underlying edema. Due to lack of trauma service available at our facility as well as spine services will need be transferred to high-level care currently waiting on [facility] to contact us back the patient was placed into a cervical collar we will continue to follow. After speaking with neurosurgery as recommended patient go ER to ER for emergent MRI imaging Dr. Jung ER physician accepted the patient will require MRI imaging of the spine patient was placed in C-spine precaution with ER department patient be going by ground transportation. Lab Data 07/10/24 08:05 07/10/24 08:05 Radiology Impressions Cervical Spine CT 07/10/24 08:08 IMPRESSION: 1. Type II dens fracture with widening measuring approximately 2.4 mm. C1-C2 articulation is maintained. 2. Prior postoperative changes ACDF C3-C6 with wide decompressive laminectomy defects. Head CT 07/10/24 08:08 IMPRESSION: 1. RIGHT frontal meningioma has significantly increased in size compared to previous described above with mass effect on the RIGHT frontal lobe. No underlying edema. Recommend follow-up with neurosurgery. 2. Moderate small vessel changes with moderate parenchymal volume loss. 3. Vascular calcification. 4. No other acute findings. Notified Holden Armendariz at 07/10/2024 8:40 AM. Laboratory Results WBC 7.32 10^3/uL (3.29-11.43) 07/10/24 08:05 RBC 3.18 10^6/uL (3.85-5.65) L 07/10/24 08:05 Hgb 9.90 g/dL (11.27-16.99) L 07/10/24 08:05 Hct 31.7 % (37-53) L 07/10/24 08:05 MCV 99.7 fl (82-101) 07/10/24 08:05 MCH 31.1 pg (27-33) 07/10/24 08:05 MCHC 31.2 g/dL (30-55) 07/10/24 08:05 RDW 17.3 % (12.1-15.1) H 07/10/24 08:05 Plt Count 125 10^3/cmm (157-399) L 07/10/24 08:05 MPV 11.2 fL (7.4-10.4) H 07/10/24 08:05 Neut % (Auto) 72.1 % 07/10/24 08:05 Lymph % (Auto) 15.0 % 07/10/24 08:05 [place] % (Auto) 5.3 % 07/10/24 08:05 Eos % (Auto) 2.0 % 07/10/24 08:05 Baso % (Auto) 0.7 % 07/10/24 08:05 Neut # (Auto) 5.27 10^3/uL (1.8-7.7) 07/10/24 08:05 Lymph # (Auto) 1.1 10^3/uL (0.8-4.8) 07/10/24 08:05 [place] # (Auto) 0.4 10^3/uL (0.2-0.9) 07/10/24 08:05 Eos # (Auto) 0.2 10^3/uL (0.0-0.8) 07/10/24 08:05 Baso # (Auto) 0.1 10^3/uL (0.0-0.1) 07/10/24 08:05 Nucleated RBC % (auto) 0 % 07/10/24 08:05 Nucleated RBCs # 0.0 /100WBC 07/10/24 08:05 PT 15.10 SECONDS (12.1-14.9) H 07/10/24 08:05 INR 1.11 (0.8-1.2) 07/10/24 08:05 APTT 29.6 SECONDS (23.9-36.7) 07/10/24 08:05 Sodium 138 mmol/L (136-145) 07/10/24 08:05 Potassium 3.9 mmol/L (3.5-5.1) 07/10/24 08:05 Chloride 97 mmol/L (98-107) L 07/10/24 08:05 Carbon Dioxide 28 mmol/L (22-29) 07/10/24 08:05 Anion Gap 16.9 (5-19) 07/10/24 08:05 BUN 26 mg/dL (8-23) H 07/10/24 08:05 Creatinine 0.9 mg/dL (0.7-1.2) 07/10/24 08:05 GFR Calculation Not Reportable 07/10/24 08:05 Glucose 123 mg/dL (65-115) H 07/10/24 08:05 Calculated Osmolality 292 mOsm/kg (285-295) 07/10/24 08:05 Calcium 8.9 mg/dL (8.5-10.5) 07/10/24 08:05 Total Bilirubin 0.9 mg/dL (0.15-1.2) 07/10/24 08:05 AST 24 U/L (0-40) 07/10/24 08:05 ALT 16 U/L (0-41) 07/10/24 08:05 Alkaline Phosphatase 131 U/L (40-130) H 07/10/24 08:05 Total Protein 7.5 g/dL (6.6-8.7) 07/10/24 08:05 Albumin 3.4 g/dL (3.5-5.2) L 07/10/24 08:05 Globulin 4.1 g/dL (1.3-4.6) 07/10/24 08:05 All radiology interpretation(s) finalized by discharge Discharge Plan Discharge Patient Disposition: Transfer to ED Clinical Impression: Fall from standing, C2 cervical fracture, Recurrent meningioma of the brain Condition: Stable Prescriptions: No Action (DME) lancets [TRUEplus Lancets] 28 gauge misc See Rx Instructions .ROUTE .MEDSUPPLY Qty: 100 Rx Instructions: As directed citalopram 20 mg tablet 20 mg PO DAILY (DME) OneTouch Ultra Test Strip See Rx Instructions .ROUTE .MEDSUPPLY Qty: 10 Rx Instructions: As directed bisacodyl 10 mg suppository 10 mg ME DAILY PRN (Reason: Constipation) acetaminophen 325 mg capsule 325 mg PO QID PRN (Reason: Pain) Rx Instructions: 2 tablets by mouth q6h prn for pain/headache/fever >100 degrees furosemide 40 mg tablet 40 mg PO DAILY metformin 500 mg tablet 500 mg PO BID hydrocodone-acetaminophen 5-325 mg tablet 1 tab PO Q6H PRN (Reason: Pain) nystatin 100,000 unit/gram powder 1 applic topical BID potassium chloride 10 mEq tablet,ER particles/crystals 10 meq PO DAILY senna 8.6 mg capsule 17.2 mg PO DAILY PRN (Reason: cosntipation) lorazepam 0.5 mg tablet 0.5 mg PO BID PRN (Reason: anxiety) Qty: 60 5RF magnesium hydroxide [Milk of Magnesia] 400 mg/5 mL Suspension 30 ml PO DAILY PRN (Reason: Constipation) meclizine 12.5 mg Tablet See Rx Instructions .ROUTE .COMPLEX PRN (Reason: Nausea And Vomiting) Rx Instructions: take 1-2 tablets by mouth three times daily as needed for dizziness trazodone 100 mg tablet 100 mg PO QPM Fleet Enema 19-7 gram/118 mL Enema 118 ml ME DAILY PRN (Reason: Constipation) Referrals: Hunter Mills MD [Primary Care Provider] - Coding Level of Care Code ED Physical Therapy Aides Teacher for Chg Fwd
[2024-07-10 08:27] LABS: INR 1.11 (0.8-1.2)
[2024-07-10 08:28] LABS: Partial Thromboplastin Time 29.6 SECONDS (23.9-36.7)
[2024-07-10 08:30] LABS: Alanine Aminotransferase 16 U/L (0-41); Albumin Level 3.4 g/dL (3.5-5.2); Alkaline Phosphatase 131 U/L (40-130); Anion Gap 16.9 (5-19); Aspartate Amino Transferase 24 U/L (0-40); Blood Urea Nitrogen 26 mg/dL (8-23); Calcium 8.9 mg/dL (8.5-10.5); Carbon Dioxide 28 mmol/L (22-29); Chloride 97 mmol/L (98-107); Creatinine Clr Calc Pharmacy 51.8691; Globulin 4.1 g/dL (1.3-4.6); Glucose 123 mg/dL (65-115); Osmolality Calculated 292 mOsm/kg (285-295); Potassium 3.9 mmol/L (3.5-5.1); Sodium 138 mmol/L (136-145); Total Bilirubin 0.9 mg/dL (0.15-1.2); Total Protein 7.5 g/dL (6.6-8.7)
--- NOTE | 2024-07-10 08:42 | PC.PHAR ---
patient is from [facility]
[2024-07-10] MEDS: tetanus-dipt-pertussis 0.5 mL SDV IM (09:12)
[2024-07-10 09:45] VITALS: BP 125/81; PULSE 69; O2SAT 97
--- NOTE | 2024-07-10 09:48 | PC.NURSE ---
cardiac mon placed on pt, c-collar placed on pt
--- NOTE | 2024-07-10 11:04 | PC.NURSE ---
family updated on pt status
[2024-07-10 11:30] VITALS: BP 118/52; PULSE 74; RESP 15; O2SAT 100
--- NOTE | 2024-07-10 12:13 | PC.NURSE ---
report called to Nicolle Pillai by Other [employer] Processing Machine Operator
--- NOTE | 2024-07-10 12:20 | PC.NURSE ---
In room at this time due to patient yelling out help me . When entering the room, the patient asked for his neck brace to be off. I explained that he needed it to remain on. Patient verbalized understanding. No further needs at this time. After leaving the room, patient yelled out again help me . Entered the room again and the patient requested the neck brace coming off.
[2024-07-10 12:30] VITALS: BP 96/57; PULSE 78; O2SAT 95
== END 2024-07-10 12:31 ==
PROVIDERS: Emergency Provider Emergency Medicine; PCP Family Medicine
DX: S12.100A Unspecified displaced fracture of second cervical vertebra, initial encounter for closed fracture (principal); W19.XXXA Unspecified fall, initial encounter; D32.0 Benign neoplasm of cerebral meninges; E11.621 Type 2 diabetes mellitus with foot ulcer; L97.429 Non-pressure chronic ulcer of left heel and midfoot with unspecified severity; Z79.84 Long term (current) use of oral hypoglycemic drugs
CPT/HCPCS: 36415; 70450; 72125; 80053; 85025; 85610; 85730; 90471; 90715; 99285